=== PATIENT | female | born 1950 | race Caucasian/White ===

== ENCOUNTER 2023-09-13 16:33 | Emergency (ER) | payer OTHER ==
--- OUTSIDE RECORDS SUMMARY | 2023-09-13 16:38 | XMS REPORT | Continuity of Care Document ---
:1950 Author Organization [facility] t Address [address] [place] [address] Care Team Providers Name Role Phone WESLEY CORTEZ Primary Care Physician Unavailable Marcelo Attending Clinician Unavailable Vicente DAVIS, Sarthak Weinbreg Attending Clinician Only, Ang Db Test Attending Clinician Unavailable Asha Hester Attending Clinician ASHA BENITEZ Attending Clinician Unavailable Doctor Unassigned, [place] Attending Clinician Unavailable Nelia Jimenez Attending Clinician NELIA DUGGAN Attending Clinician Unavailable MINESH FERNANDES Attending Clinician Unavailable Alfa BAZAN, Kallie Coles Attending Clinician Unavailable LUIS QIU Attending Clinician Unavailable Marcelo Admitting Clinician Unavailable Payers Payer Name Policy Type Policy Number Effective Date Expiration Date [facility] [id number] (MEDICARE REPLACEMENT/ADVANTA GE - PPO) [employer] MEDICARE ADV [id number] 2018 00:00:00 Problems Condition Condition Condition Status Onset Resolution Last Treating Co mments Source Name Details Category Date Date Treatment Clinician Date Paroxysmal Paroxysmal Problem Active [facility] atrial Atrial 9-20 Family fibrillati Fibrillati 00:00: Pr actic on on e Atrial Atrial Problem Active [facility] fibrillati Fibrillati 03 Fa landy on on 00:00: Practic 00 e Bone Bone Problem Active [place] density Density 5-25 Family finding Finding 00:00: Practic 00 e Osteoarthr Osteoarthr Disease Active M ethodi itis of itis of [address] right knee right knee 00:00: Ho spita 00 l Arthropath Arthropath Problem Active V illage y y 2- Family 00:00: Practic 00 e Osteoporos Osteoporos Problem Active V illage is is 2-22 Family 00:00: Practic 00 e Right knee Right knee Disease Active U nivers pain pain 06-26 ity of 00:00: [address] Generalize Generalize Problem Active 2014-10 V illage d anxiety d Anxiety 12-03 Fami ly disorder Disorder 00:00: Practi c 00 e Allergies, Adverse Reactions, Alerts Allergy Allergy Status Severity Reaction(s) Onset Inactive Treating Comm ents Source Name Type Date Date Clinician Hydrocod Propensi Active Other (See 2018-10 Nausea Me thodi one ty to Comments) 016 st adverse 00:00: Hospita reaction 00 l s to drug Hydrocod Allergy Active Moderate Diarrhea Dominick fabián one to 04-21 Family substanc 00:00: Practic e 00 e HYDROCOD DRUG Active Other-Cmnt Univ ers ONE INGREDI 04-21 ity of 00:00: [address] OXYCODON DRUG Active N/V Univers E HCL INGREDI 04-21 ity of 00:00: [address] Hydrocod Drug Active Other - See Nausea Uni vers one Allergy comments 04-21 ity of 00:00: [address] Oxycodon Drug Active Nausea Univers e Hcl Allergy and/or 04-21 ity of Vomiting 00:00: [address] NO KNOWN Allergy Active [facility] NO KNOWN Drug Active Univers ALLERGIE Class ity of S [facility] Family History Family Member Diagnosis Comments Start Date Stop Date Source Maternal grandmother Stroke [facility] Natural mother Heart attack [facility] Natural mother Heart disease [facility] Paternal grandfather Cancer [facility] Paternal grandfather Prostate cancer [facility] Natural father Diabetes [facility] Social History Social Habit Start Date Stop Date Quantity Comments Source Sexual orientation 2022-12-26 Heterosexual MALIA Cooley 20:29:06 (finding) [facility] Gender identity 2021-06-03 Identifies as Method ist 17:27:43 female gender Hospital (finding) Exposure to Not sure University of SARS-CoV-2 (event) [facility] History of Social 2021-06-19 2021-06-[address] function 00:00:00 00:00:00 Hospital Alcohol Comment 2019-08-10 2019-08-10 Occasional wine Meth odist 00:00:00 00:00:00 Hospital Tobacco use and 2016-06-26 2016-06-26 Never used Universit y of exposure 00:00:00 00:00:00 [facility] Alcohol intake 2015-07-12 2015-07-12 Current drinker of [facility] 00:00:00 00:00:00 alcohol (finding) [facility] Sex Ass[birth year] At [birth year] F MALIA Pools 00:00:00 00:00:00 [facility] Smoking Status Start Date Stop Date Source Never Smoker [facility] Medications Ordered Filled Start Stop Current Ordering Indication Dosage Frequency Signature Comments Components Source Medication Medication Date Date Medication? Clinician (SIG) Name Name amitriptyli amitriptyli No amitriptyl [facility] ne 10 mg ne 10 mg 9-20 ine 10 mg Fa landy tablet tablet 00:00: tablet Practic amitriptyli amitriptyli 00 amitriptyl e ne 10 mg ne 10 mg ine 10 mg tablet 2 tablet 2 tablet 2 Tablet(s) Tablet(s) Tablet(s) by mouth by mouth by mouth take daily take daily take daily multivitami 2020-10 Yes 1{tbl} Take 1 Me thodi n 2-[address] (THERAGRAN) 13:57: mouth. Hosp ambrocio tablet 21 l triamcinolo 2020-10 Yes Q.5D Apply Metho di ne 2-[address] (KENALOG) 13:57: 2 (two) Hospi ta 0.1 % cream 21 times a l day. multivitami 2020-10 Yes 1{tbl} Take 1 Me thodi n 2-[address] (THERAGRAN) 13:57: mouth. Hosp ambrocio tablet 21 l triamcinolo 2020-10 Yes Q.5D Apply Metho di ne 2-[address] (KENALOG) 13:57: 2 (two) Hospi ta 0.1 % cream 21 times a l day. ibandronate 2020-10 Yes ibandronat Methodi (BONIVA) 2-[address] 150 mg 13:56: tablet Hospita tablet 48 TAKE 1 l TABLET ONCE MONTHLY ibandronate 2020-10 Yes ibandronat Methodi (BONIVA) 2-[address] 150 mg 13:56: tablet Hospita tablet 48 TAKE 1 l TABLET ONCE MONTHLY amitriptyli 2020-10 Yes 10mg Take 10 mg Methodi ne (ELAVIL) 2-[address] 10 MG 13:56: Hospita tablet 26 l buPROPion 2020-10 Yes 150mg Take 150 Met hodi SR 2-[address] (WELLBUTRIN 13:56: mouth. Hosp ambrocio SR) 150 MG 26 l 12 hr tablet amitriptyli 2020-10 Yes 10mg Take 10 mg Methodi ne (ELAVIL) 2-[address] 10 MG 13:56: Hospita tablet 26 l buPROPion 2020-10 Yes 150mg Take 150 Met hodi SR 2-[address] (WELLBUTRIN 13:56: mouth. Hosp ambrocio SR) 150 MG 26 l 12 hr tablet buPROPion 2020-10 Yes 150mg Take 150 Uni vers SR 0-09 mg by ity of (WELLBUTRIN 10:54: mouth 2 Chuck as SR) 150 mg 42 (two) Medical SR tablet times Branch daily. amitriptyli 2020-10 Yes 10mg Take 10 mg Univers ne (ELAVIL) 0-09 by mouth ity of 10 mg 10:54: at [place] tablet 42 bedtime. Medical Branch buPROPion 2020-10 Yes 150mg Take 150 Uni vers SR 0-09 mg by ity of (WELLBUTRIN 10:54: mouth 2 [place] as SR) 150 mg 42 (two) Medical SR tablet times Branch daily. amitriptyli 2020-10 Yes 10mg Take 10 mg Univers ne (ELAVIL) 0-09 by mouth ity of 10 mg 10:54: at [place] tablet 42 bedtime. Medical Branch buPROPion 2020-10 Yes 150mg Take 150 Uni vers SR 0-09 mg by ity of (WELLBUTRIN 10:54: mouth 2 [place] as SR) 150 mg 42 (two) Medical SR tablet times Branch daily. amitriptyli 2020-10 Yes 10mg Take 10 mg Univers ne (ELAVIL) 0-09 by mouth ity of 10 mg 10:54: at [place] tablet 42 bedtime. Medical Branch buPROPion 2020-10 Yes 150mg Take 150 Uni vers SR 0-09 mg by ity of (WELLBUTRIN 10:54: mouth 2 [place] as SR) 150 mg 42 (two) Medical SR tablet times Branch daily. amitriptyli 2020-10 Yes 10mg Take 10 mg Univers ne (ELAVIL) 0-09 by mouth ity of 10 mg 10:54: at [place] tablet 42 bedtime. Medical Branch amiodarone 2020-10 Yes 400mg Take 400 Un vira 400 mg 0-06 mg by ity of tablet 00:00: mouth 2 [place] 00 (two) Medical times Branch daily. amiodarone 2020-10 Yes 400mg Take 400 Un vira 400 mg 0-06 mg by ity of tablet 00:00: mouth 2 [place] 00 (two) Medical times Branch daily. amiodarone 2020-10 Yes 400mg Take 400 Un vira 400 mg 0-06 mg by ity of tablet 00:00: mouth 2 [place] 00 (two) Medical times Branch daily. amiodarone 2020-10 Yes 400mg Take 400 Un vira 400 mg 0-06 mg by ity of tablet 00:00: mouth 2 [place] 00 (two) Medical times Branch daily. XARELTO 20 Yes 20mg Take 20 mg U nivers mg tablet 9-27 by mouth ity of 00:00: every [place] 00 morning. Medical Branch XARELTO 20 Yes 20mg Take 20 mg U nivers mg tablet 9-27 by mouth ity of 00:00: every [place] 00 morning. Medical Branch XARELTO 20 Yes 20mg Take 20 mg U nivers mg tablet 9-27 by mouth ity of 00:00: every [place] 00 morning. Medical Branch XARELTO 20 Yes 20mg Take 20 mg U nivers mg tablet 9-27 by mouth ity of 00:00: every [place] 00 morning. Medical Branch Xarelto 20 2020-0 Yes Methodi mg tablet 07-22 00:00: Hospita 00 l Xarelto 20 2020-0 Yes Methodi mg tablet 07-22 00:00: Hospita 00 l metoprolol 2020-0 Yes 50mg QD Take 50 mg M ethodi succinate 06-[address] XL 00:00: daily. Hospita (TOPROL-XL) 00 l 50 mg 24 hr tablet metoprolol 0 Yes 50mg QD Take 50 mg M ethodi succinate 06-[address] XL 00:00: daily. Hospita (TOPROL-XL) 00 l 50 mg 24 hr tablet triamcinolo 0 Yes Univer s ne 8- ity of acetonide 00:00: [place] 0.1 % cream 00 Medical Branch triamcinolo 0 Yes Univer s ne 8- ity of acetonide 00:00: [place] 0.1 % cream 00 Medical Branch triamcinolo 0 Yes Univer s ne 8-09 ity of acetonide 00:00: [place] 0.1 % cream 00 Medical Branch triamcinolo 0 Yes Univer s ne 8-09 ity of acetonide 00:00: [place] 0.1 % cream 00 Medical Branch cycloSPORIN 2019-10 Yes Restasis Un vira E 0-23 0.05 % eye ity of (RESTASIS) 00:00: drops in a [place] 0.05 % 00 [place] Medical drops e INT 1 Branch GTT IN OU BID cycloSPORIN 2019-10 Yes Restasis Un vira E 0-23 0.05 % eye ity of (RESTASIS) 00:00: drops in a [place] 0.05 % 00 [place] Medical drops e INT 1 Branch GTT IN OU BID cycloSPORIN 2019-10 Yes Restasis Un vira E 0-23 0.05 % eye ity of (RESTASIS) 00:00: drops in a [place] 0.05 % 00 [place] Medical drops e INT 1 Branch GTT IN OU BID cycloSPORIN 2019-10 Yes Restasis Un vira E 0-23 0.05 % eye ity of (RESTASIS) 00:00: drops in a [place] 0.05 % 00 [place] Medical drops e INT 1 Branch GTT IN OU BID cycloSPORIN 2019-10 Yes Restasis Me thodi E 0-23 0.05 % eye st (Restasis) 00:00: drops in a H ospita 0.05 % 00 drop[place] l ophthalmic e INT 1 emulsion GTT IN OU BID cycloSPORIN 2019-10 Yes Restasis Me thodi E 0-23 0.05 % eye st (Restasis) 00:00: drops in a H ospita 0.05 % 00 dropperett l ophthalmic e INT 1 emulsion GTT IN OU BID MULTIVITAMI Yes Take by Uni vers NS WITH 06-26 mouth. ity of FLUORIDE 15:40: [place] (MULTI-ESTEBAN 39 Medical MIN ORAL) Branch SODIUM Yes Use in Univers CHLORIDE 06-26 each ity of (SALINE 15:40: nostril. [place] NASAL 39 Medical NASAL) Branch MULTIVITAMI Yes Take by Uni vers NS WITH 06-26 mouth. ity of FLUORIDE 15:40: [place] (MULTI-ESTEBAN 39 Medical MIN ORAL) Branch SODIUM Yes Use in Univers CHLORIDE 06-26 each ity of (SALINE 15:40: nostril. [place] NASAL 39 Medical NASAL) Branch MULTIVITAMI Yes Take by Uni vers NS WITH 06-26 mouth. ity of FLUORIDE 15:40: [place] (MULTI-ESTEBAN 39 Medical MIN ORAL) Branch SODIUM Yes Use in Univers CHLORIDE 06-26 each ity of (SALINE 15:40: nostril. [place] NASAL 39 Medical NASAL) Branch buPROPion Yes 150mg Take 150 Uni vers SR 06-26 mg by ity of (WELLBUTRIN 15:40: mouth 2 [place] as SR) 150 mg 38 (two) Medical SR tablet times Branch daily. amitriptyli Yes 10mg Take 10 mg Univers ne (ELAVIL) 06-26 by mouth ity of 10 mg 15:40: at [place] tablet 38 bedtime. Medical Branch CALCIUM Yes Take by Univers CITRATE 06-26 mouth. ity of (CITRACAL 15:40: [place] ORAL) 38 Medical Branch GLUCOSAMINE Yes Take by Uni vers /D3/EVELIN 06-26 mouth. ity of [place] SORIN 15:40: [place] (GLUCOSAMIN 38 Medical E DAILY Branch COMPLEX ORAL) buPROPion 2016-0 Yes 150mg Take 150 Uni vers SR 9- mg by ity of (WELLBUTRIN 15:40: mouth 2 [place] as SR) 150 mg 38 (two) Medical SR tablet times Branch daily. amitriptyli Yes 10mg Take 10 mg Univers ne (ELAVIL) 06-26 by mouth ity of 10 mg 15:40: at [place] tablet 38 bedtime. Medical Branch CALCIUM Yes Take by Univers CITRATE 06-26 mouth. ity of (CITRACAL 15:40: [place] ORAL) 38 Medical Branch GLUCOSAMINE Yes Take by Uni vers /D3/EVELIN 06-26 mouth. ity of [place] SORIN 15:40: [place] (GLUCOSAMIN 38 Medical E DAILY Branch COMPLEX ORAL) buPROPion Yes 150mg Take 150 Uni vers SR 9- mg by ity of (WELLBUTRIN 15:40: mouth 2 [place] as SR) 150 mg 38 (two) Medical SR tablet times Branch daily. amitriptyli Yes 10mg Take 10 mg Univers ne (ELAVIL) 06-26 by mouth ity of 10 mg 15:40: at [place] tablet 38 bedtime. Medical Branch CALCIUM Yes Take by Univers CITRATE 06-26 mouth. ity of (CITRACAL 15:40: [place] ORAL) 38 Medical Branch GLUCOSAMINE Yes Take by Uni vers /D3/EVELIN 06-26 mouth. ity of [place] SORIN 15:40: [place] (GLUCOSAMIN 38 Medical E DAILY Branch COMPLEX ORAL) MULTIVITAMI Yes Take by Uni vers NS WITH 06-26 mouth. ity of FLUORIDE 10:40: [place] (MULTI-ESTEBAN 39 Medical MIN ORAL) Branch SODIUM Yes Use in Univers CHLORIDE 06-26 each ity of (SALINE 10:40: nostril. [place] NASAL 39 Medical NASAL) Branch MULTIVITAMI Yes Take by Uni vers NS WITH 06-26 mouth. ity of FLUORIDE 10:40: [place] (MULTI-ESTEBAN 39 Medical MIN ORAL) Branch SODIUM Yes Use in Univers CHLORIDE 06-26 each ity of (SALINE 10:40: nostril. [place] NASAL 39 Medical NASAL) Branch MULTIVITAMI Yes Take by Uni vers NS WITH 06-26 mouth. ity of FLUORIDE 10:40: [place] (MULTI-ESTEBAN 39 Medical MIN ORAL) Branch SODIUM Yes Use in Univers CHLORIDE 06-26 each ity of (SALINE 10:40: nostril. [place] NASAL 39 Medical NASAL) Branch MULTIVITAMI Yes Take by Uni vers NS WITH 06-26 mouth. ity of FLUORIDE 10:40: [place] (MULTI-ESTEBAN 39 Medical MIN ORAL) Branch SODIUM Yes Use in Univers CHLORIDE 06-26 each ity of (SALINE 10:40: nostril. [place] NASAL 39 Medical NASAL) Branch CALCIUM Yes Take by Univers CITRATE 06-26 mouth. ity of (CITRACAL 10:40: [place] ORAL) 38 Medical Branch GLUCOSAMINE Yes Take by Uni vers /D3/EVELIN 06-26 mouth. ity of [place] SORIN 10:40: [place] (GLUCOSAMIN 38 Medical E DAILY Branch COMPLEX ORAL) CALCIUM Yes Take by Univers CITRATE 06-26 mouth. ity of (CITRACAL 10:40: [place] ORAL) 38 Medical Branch GLUCOSAMINE Yes Take by Uni vers /D3/EVELIN 06-26 mouth. ity of [place] SORIN 10:40: [place] (GLUCOSAMIN 38 Medical E DAILY Branch COMPLEX ORAL) CALCIUM Yes Take by Univers CITRATE 06-26 mouth. ity of (CITRACAL 10:40: [place] ORAL) 38 Medical Branch GLUCOSAMINE Yes Take by Uni vers /D3/EVELIN 06-26 mouth. ity of [place] SORIN 10:40: [place] (GLUCOSAMIN 38 Medical E DAILY Branch COMPLEX ORAL) CALCIUM Yes Take by Univers CITRATE 06-26 mouth. ity of (CITRACAL 10:40: [place] ORAL) 38 Medical Branch GLUCOSAMINE Yes Take by Uni vers /D3/EVELIN 01 mouth. ity of [place] SORIN 10:40: [place] (GLUCOSAMIN 38 Medical E DAILY Branch COMPLEX ORAL) methylPREDN 2015-0 Yes 84mg Take 21 Uni vers ISolone 9-01 tablets by ity of (MEDROL, 00:00: mouth [place] YESSI,) 4 mg 00 SEE-INSTRU Med ical tablets CTIONS. Branch follow package directions methylPREDN 2015-0 Yes 84mg Take 21 Uni vers ISolone 9-01 tablets by ity of (MEDROL, 00:00: mouth [place] YESSI,) 4 mg 00 SEE-INSTRU Med ical tablets CTIONS. Branch follow package directions methylPREDN 2016-0 Yes 84mg Take 21 Uni vers ISolone 9-01 tablets by ity of (MEDROL, 00:00: mouth [place] YESSI,) 4 mg 00 SEE-INSTRU Med ical tablets CTIONS. Branch follow package directions methylPREDN 2015-0 Yes 84mg Take 21 Uni vers ISolone 9-01 tablets by ity of (MEDROL, 00:00: mouth [place] YESSI,) 4 mg 00 SEE-INSTRU Med ical tablets CTIONS. Branch follow package directions methylPREDN 2015-0 Yes 84mg Take 21 Uni vers ISolone 9-01 tablets by ity of (MEDROL, 00:00: mouth [place] YESSI,) 4 mg 00 SEE-INSTRU Med ical tablets CTIONS. Branch follow package directions methylPREDN 2015-0 Yes 84mg Take 21 Uni vers ISolone 9-01 tablets by ity of (MEDROL, 00:00: mouth [place] YESSI,) 4 mg 00 SEE-INSTRU Med ical tablets CTIONS. Branch follow package directions methylPREDN 2015-0 Yes 84mg Take 21 Uni vers ISolone 9-01 tablets by ity of (MEDROL, 00:00: mouth [place] YESSI,) 4 mg 00 SEE-INSTRU Med ical tablets CTIONS. Branch follow package directions ibandronate 0 Yes TK 1 T PO U nivers (BONIVA) 8 ONCE A ity of 150 mg 00:00: MONTH [place] tablet 00 [facility] ibandronate 0 Yes TK 1 T PO U nivers (BONIVA) 8 ONCE A ity of 150 mg 00:00: MONTH [place] tablet Medical [place] ibandronate 0 Yes TK 1 T PO U nivers (BONIVA) 8- ONCE A ity of 150 mg 00:00: MONTH [place] tablet 00 Medical [place] ibandronate 0 Yes TK 1 T PO U nivers (BONIVA) 8- ONCE A ity of 150 mg 00:00: MONTH [place] tablet Medical [place] ibandronate 0 Yes TK 1 T PO U nivers (BONIVA) 8 ONCE A ity of 150 mg 00:00: MONTH [place] tablet Medical [place] ibandronate 0 Yes TK 1 T PO U nivers (BONIVA) 8 ONCE A ity of 150 mg 00:00: MONTH [place] tablet 00 Medical Branch ibandronate Yes TK 1 T PO U nivers (BONIVA) 8-02 ONCE A ity of 150 mg 00:00: MONTH [place] tablet 00 Medical Branch buPROPion Yes 150mg Q.5D Take [address] (WELLBUTRIN 9-17 mg by [facility] SR) 150 MG 14:52: mouth 2 Medi petra 12 hr 14 (two) Center tablet times daily. amitriptyli Yes 10mg QD Take [address] ne (ELAVIL) 9-17 by mouth Luke s 10 MG 14:52: nightly. Medical tablet 14 Center conjugated Yes .5g Q.5W Place 0.[address] estrogens 9-17 g [facility] (PREMARIN) 14:52: vaginally Me dical 0.625 14 twice a Center mg/gram week. vaginal cream calcium Yes 1{tbl} QD Take [address] citrate 9-17 tablet by [facility] (CALCITRATE 14:52: mouth Medic al ) 200 mg 14 daily. Center (950 mg) tablet glucosamine Yes 1{tbl} [id number] Take [address] -chondroiti 9-17 [id number] tablet by [facility] n 500-400 14:52: 3D mouth 3 Medic al mg tablet 14 (three) Center times daily. multivitami Yes 1{tbl} QD Take [address] n 9-17 tablet by [facility] (MULTIVITAM 14:52: mouth Medic al IN) per 14 daily. Center tablet sodium Yes 1{spray [address] [facility] chloride 9-17 } Nasal [facility] 0.65% 14:52: route as Medical (OCEAN) 14 needed for Center 0.65 % Congestion nasal spray . calcium Yes 1{tbl} QD Take [address] citrate 9-17 tablet by [facility] (CALCITRATE 14:52: mouth Medic al ) 200 mg 14 daily. Center (950 mg) tablet glucosamine Yes 1{tbl} [id number] Take [address] -chondroiti 9-17 [id number] tablet by [facility] n 500-400 14:52: 3D mouth 3 Medic al mg tablet 14 (three) Center times daily. multivitami 2015-0 Yes 1{tbl} QD Take [address] n 9-17 tablet by [facility] (MULTIVITAM 14:52: mouth Medic al IN) per 14 daily. Center tablet sodium Yes 1{spray [address] [facility] chloride 9-17 } Nasal [facility] 0.65% 14:52: route as Medical (OCEAN) 14 needed for Center 0.65 % Congestion nasal spray . buPROPion Yes 150mg Q.5D Take [address] (WELLBUTRIN 9-17 mg by [facility] SR) 150 MG 14:52: mouth 2 Medi petra 12 hr 14 (two) Center tablet times daily. amitriptyli Yes 10mg QD Take [address] ne (ELAVIL) 9-17 by mouth Luke s 10 MG 14:52: nightly. Medical tablet 14 Center conjugated Yes .5g Q.5W Place 0.[address] estrogens 9-17 g [facility] (PREMARIN) 14:52: vaginally Me dical 0.625 14 twice a Center mg/gram week. vaginal cream Saline Saline 2011-10 [facility] Nasal Mist Nasal Mist 2-10 Nasal Mist Family 0.65 % 0.65 % 00:00: 0.65 % Practic spray spray 00 spray e aerosol aerosol aerosol Saline Saline Saline Nasal Mist Nasal Mist Nasal Mist 0.65 % 0.65 % 0.65 % [place] Aerosol; 2 Aerosol; 2 Aerosol; 2 [place]; [place]; [place]; Nasal; take Nasal; take Nasal; daily daily take daily multivitami multivitami 2010-10 No [facility] tablet n tablet 1-14 in tablet [facility] multivitami multivitami 00:00: multivitam Practic n Tab; 1 n Tab; 1 00 in Tab; 1 e Tablet(s); Tablet(s); Tablet(s); PO; daily; PO; daily; PO; daily; UOM: Tablet UOM: Tablet UOM: Tablet [facility]ivitami [facility]ami 2010-10 [facility] n tablet 1-14 in tablet [facility] multivitami multivitami 00:00: multivitam Practic n Tab; 1 n Tab; 1 00 in Tab; 1 e Tablet(s); Tablet(s); Tablet(s); PO; daily; PO; daily; PO; daily; UOM: Tablet UOM: Tablet UOM: Tablet multivitami multivitami 2010-10 No multivitam [facility] n tablet n tablet 1-14 in tablet [facility] multivitami multivitami 00:00: multivitam Practic n Tab; 1 n Tab; 1 00 in Tab; 1 e Tablet(s); Tablet(s); Tablet(s); PO; daily; PO; daily; PO; daily; UOM: Tablet UOM: Tablet UOM: Tablet multivitami [facility]ami 2010-10 [facility] n tablet 1-14 in tablet [facility] multivitami multivitami 00:00: multivitam Practic n Tab; 1 n Tab; 1 00 in Tab; 1 e Tablet(s); Tablet(s); Tablet(s); PO; daily; PO; daily; PO; daily; UOM: Tablet UOM: Tablet UOM: Tablet [facility] No 1{spray [facility] 0.65 % 0.65 % } 0.65 % Family nasal spray nasal spray nasal Practic aerosol 1 aerosol 1 spray e {spray} by {spray} by aerosol 1 nasal nasal {spray} by route. route. nasal route. amitriptyli amitriptyli No 10mg amitriptyl [facility] ne 10 mg ne 10 mg ine 10 mg [facility] tablet 10 tablet 10 tablet 10 Practic mg by oral mg by oral mg by oral e route. route. route. bupropion bupropion No 150mg BID bupropion [facility] HCl SR 150 HCl SR 150 HCl SR 150 Family mg mg mg Practic tablet,12 tablet,12 tablet,12 e hr hr hr sustained-r sustained-r sustained- elease 150 elease 150 release mg twice a mg twice a 150 mg day by oral day by oral twice a route. route. day by oral route. ibandronate ibandronate No ibandronat [facility] 150 mg 150 mg e 150 mg Family tablet TAKE tablet TAKE tablet Practic 1 TABLET 1 TABLET TAKE 1 e ONCE ONCE TABLET MONTHLY MONTHLY ONCE MONTHLY metoprolol metoprolol No metoprolol [facility] succinate succinate succinate Family ER 50 mg ER 50 mg ER 50 mg Pra ctic tablet,exte tablet,exte tablet,ext e nded nded ended release 24 release 24 release 24 hr TAKE 1/2 hr TAKE 1/2 hr TAKE TABLET BY TABLET BY 1/2 TABLET MOUTH DAILY MOUTH DAILY BY MOUTH DAILY Premarin Premarin No .5g Premarin Dominick fabián 0.625 0.625 0.625 Family mg/gram mg/gram mg/gram Practi c vaginal vaginal vaginal e cream 0.5 g cream 0.5 g cream 0.5 by vaginal by vaginal g by route. route. vaginal route. Restasis Restasis No Restasis Dominick fabián 0.05 % eye 0.05 % eye 0.05 % eye Family drops in a drops in a drops in a Practic dropperette dropperette dropperett e INT 1 GTT INT 1 GTT e INT 1 IN OU BID IN OU BID GTT IN OU BID triamcinolo triamcinolo No triamcinol [facility] ne ne one Family acetonide acetonide acetonide Practic 0.1 % 0.1 % 0.1 % e topical topical topical cream cream cream Xarelto 20 Xarelto 20 No Xarelto 20 [place] mg tablet mg tablet mg tablet Family TAKE 1 TAKE 1 TAKE 1 Practic TABLET BY TABLET BY TABLET BY e MOUTH DAILY MOUTH DAILY MOUTH DAILY [facility] No 1{spray [facility] 0.65 % 0.65 % } 0.65 % Family nasal spray nasal spray nasal Practic aerosol 1 aerosol 1 spray e {spray} by {spray} by aerosol 1 nasal nasal {spray} by route. route. nasal route. amitriptyli amitriptyli No 10mg amitriptyl [facility] ne 10 mg ne 10 mg ine 10 mg Fa landy tablet 10 tablet 10 tablet 10 Practic mg by oral mg by oral mg by oral e route. route. route. bupropion bupropion No 150mg BID bupropion [facility] HCl SR 150 HCl SR 150 HCl SR 150 Family mg mg mg Practic tablet,12 tablet,12 tablet,12 e hr hr hr sustained-r sustained-r sustained- elease 150 elease 150 release mg twice a mg twice a 150 mg day by oral day by oral twice a route. route. day by oral route. ibandronate ibandronate No ibandronat [facility] 150 mg 150 mg e 150 mg Family tablet TAKE tablet TAKE tablet Practic 1 TABLET 1 TABLET TAKE 1 e ONCE ONCE TABLET MONTHLY MONTHLY ONCE MONTHLY metoprolol metoprolol No metoprolol [place] succinate succinate succinate Family ER 50 mg ER 50 mg ER 50 mg Pra ctic tablet,exte tablet,exte tablet,ext e nded nded ended release 24 release 24 release 24 hr TAKE 1/2 hr TAKE 1/2 hr TAKE TABLET BY TABLET BY 1/2 TABLET MOUTH DAILY MOUTH DAILY BY MOUTH DAILY Premarin Premarin No .5g Premarin Dominick fabián 0.625 0.625 0.625 Family mg/gram mg/gram mg/gram Practi c vaginal vaginal vaginal e cream 0.5 g cream 0.5 g cream 0.5 by vaginal by vaginal g by route. route. vaginal route. Restasis Restasis No Restasis Dominick fabián 0.05 % eye 0.05 % eye 0.05 % eye Family drops in a drops in a drops in a Practic dropperette dropperette dropperett e INT 1 GTT INT 1 GTT e INT 1 IN OU BID IN OU BID GTT IN OU BID triamcinolo triamcinolo No triamcinol [place] ne ne one Family acetonide acetonide acetonide Practic 0.1 % 0.1 % 0.1 % e topical topical topical cream cream cream Xarelto 20 Xarelto 20 No Xarelto 20 Village mg tablet mg tablet mg tablet Family TAKE 1 TAKE 1 TAKE 1 Practic TABLET BY TABLET BY TABLET BY e MOUTH DAILY MOUTH DAILY MOUTH DAILY bupropion bupropion No bupropion [facility] HCl SR 150 HCl SR 150 HCl SR 150 Family mg mg mg Practic tablet,12 tablet,12 tablet,12 e hr hr hr sustained-r sustained-r sustained- elease TAKE elease TAKE release 1 TABLET 1 TABLET TAKE 1 DAILY DAILY TABLET DAILY ibandronate ibandronate No ibandronat [place] 150 mg 150 mg e 150 mg Family tablet TAKE tablet TAKE tablet Practic 1 TABLET 1 TABLET TAKE 1 e ONCE ONCE TABLET MONTHLY MONTHLY ONCE MONTHLY metoprolol metoprolol No 1 Q1D metoprolol [facility] succinate succinate succinate Family ER 50 mg ER 50 mg ER 50 mg Pra ctic tablet,exte tablet,exte tablet,ext e nded nded ended release 24 release 24 release 24 hr Take 1 hr Take 1 hr Take 1 tablet tablet tablet every day every day every day by oral by oral by oral route. route. route. Restasis Restasis No Restasis Dominick fabián 0.05 % eye 0.05 % eye 0.05 % eye Family drops in a drops in a drops in a Practic dropperette dropperette dropperett e INT 1 GTT INT 1 GTT e INT 1 IN OU BID IN OU BID GTT IN OU BID triamcinolo triamcinolo No triamcinol [place] ne ne one Family acetonide acetonide acetonide Practic 0.1 % 0.1 % 0.1 % e topical topical topical cream cream cream Xarelto 20 Xarelto 20 No 1 Q1D Xarelto 20 [facility] mg tablet mg tablet mg tablet Family Take 1 Take 1 Take 1 Practic tablet tablet tablet e every day every day every day by oral by oral by oral route. route. route. bupropion bupropion No bupropion [facility] HCl SR 150 HCl SR 150 HCl SR 150 Family mg mg mg Practic tablet,12 tablet,12 tablet,12 e hr hr hr sustained-r sustained-r sustained- elease TAKE elease TAKE release 1 TABLET 1 TABLET TAKE 1 DAILY DAILY TABLET DAILY chlorhexidi chlorhexidi chlorhexid [facility] ne ine Family gluconate gluconate gluconate Practic 0.12 % 0.12 % 0.12 % e mouthwash mouthwash mouthwash SWAB SWAB SWAB IMPLANT IMPLANT IMPLANT WITH WITH WITH SOLUTION SOLUTION SOLUTION TWICE DAILY TWICE DAILY TWICE AFTER AFTER DAILY BRUSHING BRUSHING AFTER BRUSHING ibandronate ibandronate No ibandronat [facility] 150 mg 150 mg e 150 mg Family tablet TAKE tablet TAKE tablet Practic 1 TABLET 1 TABLET TAKE 1 e ONCE ONCE TABLET MONTHLY MONTHLY ONCE MONTHLY metoprolol metoprolol metoprolol [facility] succinate succinate succinate Family ER 50 mg ER 50 mg ER 50 mg Pra ctic tablet,exte tablet,exte tablet,ext e nded nded ended release 24 release 24 release 24 hr TAKE 1/2 hr TAKE 1/2 hr TAKE TABLET BY TABLET BY 1/2 TABLET MOUTH DAILY MOUTH DAILY BY MOUTH DAILY mupirocin 2 mupirocin 2 No mupirocin Village % topical % topical 2 % Famil y ointment ointment topical Prac tic APPLY APPLY ointment e SPARINGLY SPARINGLY APPLY TOPICALLY TOPICALLY SPARINGLY TO THE TO THE TOPICALLY AFFECTED AFFECTED TO THE AREA THREE AREA THREE AFFECTED TIMES DAILY TIMES DAILY AREA THREE TIMES DAILY Restasis Restasis No Restasis Dominick fabián 0.05 % eye 0.05 % eye 0.05 % eye Family drops in a drops in a drops in a Practic dropperette dropperette dropperett e INT 1 GTT INT 1 GTT e INT 1 IN OU BID IN OU BID GTT IN OU BID triamcinolo triamcinolo No triamcinol [place] ne ne one Family acetonide acetonide acetonide Practic 0.1 % 0.1 % 0.1 % e topical topical topical cream cream cream Xarelto 20 Xarelto 20 No Xarelto 20 [facility] mg tablet mg tablet mg tablet Family TAKE 1 TAKE 1 TAKE 1 Practic TABLET BY TABLET BY TABLET BY e MOUTH DAILY MOUTH DAILY MOUTH DAILY Immunizations Ordered Immunization Filled Immunization Date Status Commen ts Source Name Name SARS-COV-2 SARS-COV-2 2020-12-24 Completed [facility] (COVID-19) vaccine, (COVID-19) vaccine, 00:00:00 Family UNSPECIFIED UNSPECIFIED Practice COVID-19 COVID-19 2020-12-24 Completed [facility] (SARS-COV-2) (SARS-COV-2) 00:00:00 Family vaccine, unspecified vaccine, unspecified Practice SARS-COV-2 SARS-COV-2 2020-11-26 Completed [facility] (COVID-19) vaccine, (COVID-19) vaccine, 00:00:00 Family UNSPECIFIED UNSPECIFIED Practice COVID-19 COVID-19 2020-11-26 Completed [facility] (SARS-COV-2) (SARS-COV-2) 00:00:00 Family vaccine, unspecified vaccine, unspecified Practice COVID-19 vaccine, COVID-19 vaccine, 2019-12-27 Completed [facility] vector-nr, rS-Ad26, vector-nr, rS-Ad26, 00:00:00 Family PF, 0.5 mL (Streamline) PF, 0.5 mL (Slick) Practice zoster recombinant zoster recombinant 2019-04-25 Completed [facility] 00:00:00 Family Practice zoster recombinant zoster recombinant 2019-04-25 [facility] 00:00:00 Family Practice influenza, high dose influenza, high dose 2016-12-17 Completed [facility] seasonal seasonal 00:00:00 Family Practice influenza, high dose influenza, high dose 2016-12-17 Completed [facility] seasonal seasonal 00:00:00 Family Practice pneumococcal pneumococcal 2015-10-02 Completed [facility] polysaccharide PPV23 polysaccharide PPV23 00:00:00 Family Practice pneumococcal pneumococcal 2015-10-02 Completed [facility] polysaccharide PPV23 polysaccharide PPV23 00:00:00 Family Practice influenza, high dose influenza, high dose 2015-07-26 Completed [facility] seasonal seasonal 00:00:00 Family Practice influenza, high dose influenza, high dose 2015-07-26 Completed [facility] seasonal seasonal 00:00:00 Family Practice zoster live zoster live 2014-03-13 Completed [facility] 00:00:00 Family Practice Tdap Tdap 2014-03-13 Completed [facility] 00:00:00 Family Practice zoster live zoster live 2014-03-13 Completed [facility] 00:00:00 Family Practice Tdap Tdap 2014-03-13 Completed [facility] 00:00:00 Family Practice Pneumococcal Pneumococcal Unknown Completed [facility] conjugate PCV20, conjugate PCV20, Fa landy polysaccharide polysaccharide Practi ce [id number] conjugate, [id number] conjugate, adjuvant, PF adjuvant, PF influenza, influenza, Unknown Completed [facility] high-dose, high-dose, Family quadrivalent quadrivalent Practice COVID-19 COVID-19 Unknown Completed [facility] (SARS-COV-2) (SARS-COV-2) Family vaccine, unspecified vaccine, unspecified Practice COVID-19 COVID-19 Unknown Completed [facility] (SARS-COV-2) (SARS-COV-2) Family vaccine, unspecified vaccine, unspecified Practice COVID-19 vaccine, COVID-19 vaccine, Unknown Completed [facility] vector-nr, rS-Ad26, vector-nr, rS-Ad26, Family PF, 0.5 mL (Streamline) PF, 0.5 mL (Streamline) Practice zoster recombinant zoster recombinant Unknown Completed [facility] Family Practice influenza, high dose influenza, high dose Unknown Completed [facility] seasonal seasonal Family Practice pneumococcal pneumococcal Unknown Completed [facility] polysaccharide PPV23 polysaccharide PPV23 Family Practice influenza, high dose influenza, high dose Unknown Completed [facility] seasonal seasonal Family Practice zoster live zoster live Unknown Completed [facility] Family Practice Tdap Tdap Unknown Completed [facility] Family Practice Pneumococcal Pneumococcal Unknown Completed [facility] conjugate PCV20, conjugate PCV20, Fa landy polysaccharide polysaccharide Practi ce [id number] conjugate, [id number] conjugate, adjuvant, PF adjuvant, PF influenza, influenza, Unknown Completed [facility] high-dose, high-dose, Family quadrivalent quadrivalent Practice COVID-19 COVID-19 Unknown Completed [facility] (SARS-COV-2) (SARS-COV-2) Family vaccine, unspecified vaccine, unspecified Practice COVID-19 COVID-19 Unknown Completed [facility] (SARS-COV-2) (SARS-COV-2) Family vaccine, unspecified vaccine, unspecified Practice COVID-19 vaccine, COVID-19 vaccine, Unknown Completed [facility] vector-nr, rS-Ad26, vector-nr, rS-Ad26, Family PF, 0.5 mL (Slick) PF, 0.5 mL (Slick) Practice zoster recombinant zoster recombinant Unknown Completed [facility] Practice influenza, high dose influenza, high dose Unknown Completed [facility] seasonal seasonal Family Practice pneumococcal pneumococcal Unknown Completed [facility] polysaccharide PPV23 polysaccharide PPV23 Family Practice influenza, high dose influenza, high dose Unknown Completed [facility] seasonal Family Practice zoster live zoster live Unknown Completed [facility] Tdap Tdap Unknown Completed [facility] Vital Signs Vital Name Observation Time Observation Value Comments Source Body Weight 2023-07-15 00:00:00 123.8 [lb_av] [facility] Practice BP Diastolic 2023-07-15 00:00:00 82 mm[Hg] [facility] Practice Height 2023-07-15 00:00:00 69 [in_i] [facility] Practice BP Systolic 2023-07-15 00:00:00 122 mm[Hg] [facility] Practice BMI (Body Mass 2023-07-15 00:00:00 18.3 kg/m2 [facility] Index) Practice BP Diastolic 2022-07-15 00:00:00 74 mm[Hg] [facility] Practice Height 2022-07-15 00:00:00 69 [in_i] [facility] Practice BMI (Body Mass 2022-07-15 00:00:00 17.9 kg/m2 [facility] Index) Practice BP Systolic 2022-07-15 00:00:00 120 mm[Hg] [facility] Body Weight 2022-07-15 00:00:00 121.4 [lb_av] [facility] Systolic blood 2021-08-03 15:56:00 129 mm[Hg] Univer sity of pressure [facility] Diastolic blood 2021-08-03 15:56:00 77 mm[Hg] Unive rsity of [facility] Heart rate 2021-08-03 15:56:00 51 /min [facility] Body temperature 2021-08-03 15:56:00 36.44 [facility] Respiratory rate 2021-08-03 15:56:00 19 /min [facility] Body height 2021-08-03 15:56:00 175.3 cm [facility] Body weight 2021-08-03 15:56:00 60.147 kg [facility] BMI 2021-08-03 15:56:00 19.58 kg/m2 [facility] Oxygen saturation in 2021-08-03 15:56:00 99 /min [facility] Arterial blood by [facility] Pulse oximetry Branch BP Diastolic 2021-06-28 00:00:00 70 mm[Hg] [facility] Height 2021-06-28 00:00:00 69 [in_i] [facility] BMI (Body Mass 2021-06-28 00:00:00 18.3 kg/m2 Vill e Family Index) Practice BP Systolic 2021-06-28 00:00:00 110 mm[Hg] [facility] Body Weight 2021-06-28 00:00:00 123.6 [lb_av] [facility] Systolic blood 2022-12-18 17:42:00 102 mm[Hg] [facility] pressure Diastolic blood 2022-12-18 17:42:00 75 mm[Hg] [facility] pressure Heart rate 2022-12-18 17:42:00 87 /min [facility] Respiratory rate 2022-12-18 17:42:00 16 /min [facility] Oxygen saturation in 2022-12-18 17:42:00 98 /min [facility] Arterial blood by Pulse oximetry Body height 2022-12-18 17:11:00 175.3 cm [facility] Body weight 2022-12-18 17:11:00 54.432 kg [facility] BMI 2022-12-18 17:11:00 17.72 kg/m2 [facility] Procedures Procedure Date / Time Performing Clinician Source Performed DEXA, axial skeleton 2023-07-15 00:00:[address] [facility] [address] CARDIAC OVERREAD 2022-12-18 17:47:40 Sarthak Zhang [facility] CV CTA CORONARY ARTERIES W 2022-12-18 17:45:37 Sarthak Zhang [facility] CONTRAST POC CREATININE 2022-12-18 17:08:00 Sarthak Zhang [facility] ESTIMATED GFR 2022-12-18 17:08:00 Sarthak Zhang [facility] ASSIGNMENT OF BENEFITS 2021-11-20 16:22:07 Doctor Unassigned, [facility] XR FOOT 3+ VW RIGHT 2021-08-03 16:29:19 [facility] 2021-06[facility]28 00:00:00 [facility] Practice Colonoscopy [facility] Eye Surgery [facility] Practice Knee Replacement [facility] Plan of Care Planned Activity Planned Date Details Comments Source Future Scheduled Test 2023-08-19 Screening for [facility] 15:19:04 malignant neoplasm of Hospit al colon (procedure) [code = 853440513] Future Scheduled Test 2023-08-19 Screening for [facility] 15:19:04 malignant neoplasm of Hospit al colon (procedure) [code = 688500662] Future Scheduled Test 2023-08-19 Screening for [facility] 15:19:04 malignant neoplasm of Hospit al colon (procedure) [code = 586206520] Future Scheduled Test 2023-08-19 Hepatitis C screening [facility] 15:19:04 (procedure) [code = Hospital 068543782] Future Scheduled Test 2023-08-19 Screening for [facility] dist 15:19:04 malignant neoplasm of Hospit al colon (procedure) [code = 259052209] Future Scheduled Test 2023-08-19 Screening for [facility] dist 15:19:04 malignant neoplasm of Hospit al colon (procedure) [code = 147864096] Future Scheduled Test 2023-08-19 SHINGLES VACCINES (2 [facility] 15:19:04 of 3) [code = SHINGLES Hospi danish VACCINES (2 of 3)] Future Scheduled Test 2023-08-19 BREAST CANCER [facility] 15:19:04 SCREENING [code = Hospital BREAST CANCER SCREENING] Future Scheduled Test 2023-08-19 COVID-19 VACCINE (6 - [facility] 15:19:04 season) [code Hospit al = COVID-19 VACCINE ( - season)] Future Scheduled Test 2023-08-19 INFLUENZA VACCINE (#1) [facility] 15:19:04 [code = INFLUENZA Hospital VACCINE (#1)] Diagnostic Test 2023-07-15 CBC w/ auto diff [code Vi llage Family Pending 00:00:00 = CBC w/ auto diff] Practice Diagnostic Test 2023-07-15 CMP, serum or plasma Vill age Family Pending 00:00:00 [code = CMP, serum or Practi ce plasma] Diagnostic Test 2023-07-15 vitamin D, 25-hydroxy, Vi llage Family Pending 00:00:00 total, serum [code = Practic e vitamin D, 25-hydroxy, total, serum] Future Scheduled Test 2023-07-08 Screening for [facility] dist 22:10:15 malignant neoplasm of Hospit al colon (procedure) [code = 743633502] Future Scheduled Test 2023-07-08 Screening for [facility] dist 22:10:15 malignant neoplasm of Hospit al colon (procedure) [code = 954813823] Future Scheduled Test 2023-07-08 Screening for [facility] dist 22:10:15 malignant neoplasm of Hospit al colon (procedure) [code = 024954485] Future Scheduled Test 2023-07-08 Hepatitis C screening [facility] 22:10:15 (procedure) [code = [facility] 634749313] Future Scheduled Test 2023-07-08 Screening for [facility] dist 22:10:15 malignant neoplasm of Hospit al colon (procedure) [code = 431664501] Future Scheduled Test 2023-07-08 Screening for [facility]o dist 22:10:15 malignant neoplasm of Hospit al colon (procedure) [code = 702185711] Future Scheduled Test 2023-07-08 SHINGLES VACCINES (2 [facility] 22:10:15 of 3) [code = SHINGLES Hospi danish VACCINES (2 of 3)] Future Scheduled Test 2023-07-08 COVID-19 VACCINE (6 - [facility] 22:10:15 Mixed Product series) Hospit al [code = COVID-19 VACCINE (6 - Mixed Product series)] Future Scheduled Test 2023-07-08 BREAST CANCER [facility] 22:10:15 SCREENING [code = Hospital BREAST CANCER SCREENING] Future Scheduled Test 2023-07-08 INFLUENZA VACCINE (#1) [facility] 22:10:15 [code = INFLUENZA Hospital VACCINE (#1)] Future Scheduled Test 2023-06-26 Influenza Vaccine (#1) [facility] 00:00:00 [code = Influenza Medical Ce nter Vaccine (#1)] Future Scheduled Test 2022-10-[address] [facility] 00:00:00 (12+) [code = Medical Center DEPRESSION SCREENING (12+)] Future Scheduled Test 2022-10-26 FALLS RISK SCREENING [facility] 00:00:00 [code = FALLS RISK Medical C enter SCREENING] Future Scheduled Test 2022-08-14 [facility]ening [facility] malignant neoplasm of Medica l Center breast (procedure) [code = 933072690] Future Scheduled Test 2019-10-[address] [facility] 00:00:00 WELLNESS (YEAR 2 or Medical Center FIRST YEAR if no IPPE) [code = MEDICARE ANNUAL WELLNESS (YEAR 2 or FIRST YEAR if no IPPE)] Future Scheduled Test 2015 PNEUMOCOCCAL 65+ YRS [facility] 00:00:00 (1 - PCV) [code = Medical Ce nter PNEUMOCOCCAL 65+ YRS (1 - PCV)] Future Scheduled Test 2000-01-05 SHINGLES VACCINES ([address] [facility] 00:00:00 of 2) [code = SHINGLES Medic al Center VACCINES (1 of 2)] Future Scheduled Test 1969 DTAP/TDAP/TD VACCINES [facility] 00:00:00 (1 - Tdap) [code = Medical C enter DTAP/TDAP/TD VACCINES (1 - Tdap)] Future Scheduled Test 1968-01-05 HEPATITIS C SCREENING [facility] 00:00:00 [code = HEPATITIS C Medical Center SCREENING] Future Scheduled Test [address] [facility] 00:00:00 Counseling and Medical Cente r Screening (12+) [code = Tobacco Cessation Counseling and Screening (12+)] Future Scheduled Test 1950 COVID-19 VACCINE (#1) [facility] 00:00:00 [code = COVID-[address] VACCINE (#1)] Future Scheduled Test 1950 [facility] for [facility] 00:[facility]:00 malignant neoplasm of Medica l Center colon (procedure) [code = 308658435] Future Scheduled Test 1950 Sigmoidoscopy [code = [facility] 00:00:00 Sigmoidoscopy] Medical Cente r Future Scheduled Test [address] [facility] 00:00:00 (combo) [code = CT Medical C enter Colonography (combo)] Future Scheduled Test 1950 [facility]ening for [facility] 00:00:00 malignant neoplasm of Medica l Center colon (procedure) [code = 804259582] Future Scheduled Test 1950 [facility]ening for [facility] 00:00:00 malignant neoplasm of [facility] colon (procedure) [code = 657759552] Future Scheduled Test 1950 DXA SCAN [code = DXA [facility] 00:00:00 SCAN] [facility] Future Scheduled Test 1950 [facility] for [facility] 00:00:00 malignant neoplasm of [facility] colon (procedure) [code = 295316227] Future Appointment 2024-07-15 Wesley Cortez, [facility] 00:00:[address], [place] [address] [facility] Encounters Start End Encounter Admission Attending Care Care Encounter Source Date/Time Date/Time Type Type Clinicians Facility Department ID 2023-07-15 2023-07-15 Outpatient Niefield_S_ VFP VFP [id number] [facility] 00:00:00 00:00:00 SAMY [id number] Family Practic e 2023-07-15 2023-07-15 Wesley VFP [place] - [id number] V illage 00:00:00 00:00:00 [facility], Medical - Prac tic MD: [id number] [place] - e [facility] [address], [place] [address] , Ph. 2023-07-14 2023-07-14 Outpatient Niefield_S_ VFP VFP [id number] [facility] 00:00:00 00:00:00 SAMY [id number] Family Practic e 2023-02-05 2023-02-05 Outpatient Niefield_S VFP VFP 1612 [id number] [facility] 00:00:00 00:00:00 [id number] Family Practic e 2023-02-05 2023-02-05 Outpatient Niefield_S VFP VFP 1612 [id number] [facility] 00:00:00 00:00:00 [id number] Family Practic e 2022-12-18 2022-12-[address]840.1 [id number] [facility] 11:47:39 23:59:00 Encounter Sarthak Weinberg [address]39.1.[address] 3.430.2.7 Hospit a .3.045702 l .8 2022-12-18 2022-12-18 [facility], 1.2.840.1 [id number] Methodi 11:47:39 23:59:00 Encounter Sarthak Weinberg 36240.1.[address] 3.430.2.7 Hospit a .3.898532 l .8 2022-12-18 2022-12-18 [facility], 1.2.840.1 [id number] Methodi 09:59:05 11:46:00 Encounter Sarthak Weinberg 60763.1.[address] 3.430.2.7 Hospit a .3.297604 l .8 2022-12-18 2022-12-18 [facility], 1.2.840.1 [id number] Methodi 09:59:05 11:46:00 Encounter Sarthak Jameson50.1.[address] 3.430.2.7 Hospit a .3.121676 l .8 2022-12-18 2022-12-18 Travel 1.2.840.1 1.2.597.632 [id number] Methodi 00:00:00 00:00:[address] 3.430.2.7 0.2.7.3.698 Ho spita .3.012995 084.8 l .8 2022-12-18 2022-12-18 Travel 1.2.840.1 1.2.855.159 [id number] [id number] Methodi 00:00:00 00:00:[address] 3.430.2.7 0.2.7.3.698 Ho spita .3.367638 084.8 l .8 2022-12-15 2022-12-15 Travel 1.2.840.1 1.2.915.114 [id number] [id number] Methodi 00:00:00 00:00:[address] 3.430.2.7 0.2.7.3.698 Ho spita .3.973441 084.8 l .8 2022-12-15 2022-12-15 Travel 1.2.840.1 1.2.425.040 4117 [id number] Methodi 00:00:00 00:00:[address] 3.430.2.7 0.2.7.3.698 Ho spita .3.202058 084.8 l .8 2022-12-02 2022-12-02 Travel 1.2.840.1 1.2.331.568 1431 [id number] Methodi 00:00:00 00:00:[address] 3.430.2.7 0.2.7.3.698 Ho spita .3.839039 084.8 l .8 2022-12-02 2022-12-02 Travel 1.2.840.1 1.2.966.986 8976 [id number] Methodi 00:00:00 00:00:[address] 3.430.2.7 0.2.7.3.698 Ho spita .3.191318 084.8 l .8 2022-12-01 2022-12-01 [facility] Vicente, 1.2.840.1 [id number] [id number] Methodi 00:00:00 00:00:00 Alessandro Weinberg 62051.1.1 084 s t 3.430.2.7 Hospit a .3.335136 l .8 2022-12-01 2022-12-01 [facility] Vicente, 1.2.840.1 [id number] [id number] Methodi 00:00:00 00:00:00 Alessandro Weinberg 61930.1.1 084 s t 3.430.2.7 Hospit a .3.188247 l .8 2022-07-15 2022-07-15 Outpatient Niefield_S VFP VFP [id number] [facility] 00:00:00 00:00:00 [id number] Family Practic e 2022-07-15 2022-07-15 Wesley VFP [place] - [id number] V illage 00:00:00 00:00:00 [facility] Family Annmarie, Medical - Prac tic : [address]_ROMAN_Talat e [address] [place] [address] In [address] , Medicine [address], [place] [address] , Ph. 2021-12-05 2021-12-05 Outpatient Niefield_S VFP VFP [id number] [id number] [facility] 02:57:00 02:57:00 [id number] Family Practic e 2021-11-20 2021-11-20 Laboratory Only, Ang Db Test [facility] 1.2.8 40.114 [id number] Univers 10:45:00 11:00:00 Only Qiana, [facility] 350.1.13.10 ity of [place] 4.2.7.2.686 Chuck as JUVENAL?BLEA [phone] Nh claudia WYATT [address] [facility] 2021-11-20 2021-11-20 Outpatient R [facility] [id number] Univers 10:45:00 10:45:00 ASHA partida o lora [facility] 2021-11-20 2021-11-20 Orders Doctor KATHRYN 1.2.840.114 [id number] Univers 00:00:00 00:00:00 Only Unassigned, RICHARD 350.1.13.10 ity of [facility] 4.2.7.2.686 Chuck as [phone] [address] 2021-11-01 2021-11-01 Outpatient [facility]_S VFP VF 161 [id number] [facility] 05:11:00 05:11:00 [id number] Family Practic e 2021-08-03 2021-08-03 [facility] 1.2.840.114 [id number] Univers 11:18:41 23:59:00 Encounter [facility] 350.1.13.10 ity of [place] 4.2.7.2.686 Chuck as Juvenal?Blea [id number] Nh claudia bettencourt [address] [facility] 2021-08-03 2021-08-03 [facility] 1.2.840.114 [id number] Univers 10:48:10 11:26:35 Care [facility] 350.1.13.10 it y of [place] 4.2.7.2.686 Chuck as Juvenal?Blea [phone] [facility] [address] Medical Office Building 2021-08-03 2021-08-03 Outpatient R OLGA LIDIA [facility] [id number] Univers 11:00:00 11:00:00 NELIA isaura [facility] 2021-07-23 2021-07-23 [facility] [id number] 00:00:00 00:00:[address] MINESH [address] 2021-07-02 2021-07-02 Outpatient Niefield_S VFP [facility] 1612 [id number] [facility] 11:36:00 11:36:00 [id number] Family Practic e 2021-06-28 2021-06-28 Wesley Niefield_S [facility] [id number] [facility] 00:00:00 00:00:00 [facility] [id number] [facility], Medical - Prac tic MD: 4543 VM_HOU_Asso e Post [facility] In Place , Medicine [address], [place] [address] , Ph. 2021-06-19 2021-06-19 [facility] [id number] 00:00:00 00:00:00 MINESH [address] 2021-06-11 2021-06-11 Letter KATHRYN Grimm 1.2.840.114 [id number] Univers 00:00:00 00:00:00 (Out) Kallie RAOMS 350.1.13.10 it y of [facility] 4.2.7.2.686 Chuck as [id number] [address] 2021-06-10 2021-06-10 Outpatient Romulo BENITEZ [facility] [id number] [facility] 09:15:00 09:15:00 ASHA paulino [facility] 2021-06-10 2021-06-10 Letter Doctor PERALTA [id number] [facility] 00:00:00 00:00:00 (Out) Unassigned, RICHARD [id number] ity of [place] [facility] [id number] Chuck as [phone] [place] [id number] [address] 2021-06-10 2021-06-10 Letter Doctor KATHRYN [id number] [facility] 00:00:00 00:00:00 (Out) Unassigned, RICHARD [id number] ity of [place] [facility] [id number] Chuck as [phone] [place] [id number] [address] 2021-06-07 2021-06-07 Outpatient [place]_S VFP VFP [id number] [facility] 12:20:00 12:20:00 [id number] Family Practic e 2021-06-04 2021-06-04 Outpatient [facility] [id number] 00:00:00 00:00:00 MINESH 725 Method i 2021-06-03 2021-06-03 [facility]patient [facility] [id number] 00:00:00 00:00:00 MINESH 459 Method i 2021-05-30 2021-05-30 Outpatient [facility] [id number] 00:00:00 00:00:00 MINESH 559 Method i 2020-08-14 2020-08-[address] [facility] [id number] [facility] 00:00:00 00:00:00 LUIS DE DIOS Results Test Description Test Time Test Comments Results Result Comments Source POC creatinine 2022-12-18 17:09:00 Test Item Value Reference Range Interpretation Comme nts POC creatinine (test code = 0.8 mg/dl 0.5-0.9 Elevator Constructor Name: Letciia [id number]) Catarina Padilla D: [id number] [facility] [id number] 17:09:00 Test Item Value Reference Range Interpretation Comments Estimated GFR (test 73 mL/min/1.73 m2 [facility] Units code = 30497-3) Interpretati onG1 >=90 Normal or highG 2 60-89 Mildly decrease dG3a 45-59 Mildly to moder ately [id number] 30 -44 Moderately to s everely decreasedG4 15- 29 Severely decreasedG5 <15 Kidney failureThe eGFR was calculated usin g the Chronic Kidney Disease Epidemiology Co llaboration (CKD-EPI) equat ion. Interpretation is based on recommendations of the National Kidney Foundation-Kidn ey Disease Outcomes Qualit y Initiative (NKF-KDOQI) pub lished in 2014. [facility] [id number] 17:09:00 Test Item Value Reference Range Interpretation Comments POC creatinine (test 0.8 mg/dl 0.5-0.9 Operato r Name: Leticia code = 90280-7) Katiana jaramillo ID: [id number] [facility] [id number] 17:09:00 Test Item Value Reference Range Interpretation Comments Estimated GFR (test 73 mL/min/1.73 m2 [facility] Units code = 86889-6) Interpretati onG1 >=90 Normal or highG 2 60-89 Mildly decrease dG3a 45-59 Mildly to moder ately [id number] 30 -44 Moderately to s everely decreasedG4 15- 29 Severely decreasedG5 <1 5 Kidney failureThe eGFR was calculated usin g the Chronic Kidney Disease Epidemiology Co llaboration (CKD-EPI) equat ion. Interpretation is based on recommendations of the National Kidney Foundation-Kidn ey Disease Outcomes Qualit y Initiative (NKF-KDOQI) pub lished in 2014. [facility], DIGITAL, MAMMO, SCREENING, WITH ANGEL, BILATERAL INCLUDING [id number] 15:14:00Diagnostic workup per radiologist?->YesReason for Exam:->Encounter for screening mammogram [facility] 1950 Sex: FMRN#: [id number] - MM, DIGITAL, MAMMO, SCREENING, WITH ANGEL, BILATERAL INCLUDING CAD BILATERAL DIGITAL SCREENING MAMMOGRAM 3D/2D WITH CAD: 08/14/2020 Comparison is made to exams dated: 07/20/2019 mammogram, 10/08/2017 mammogram, and 09/25/2016 mammogram - [facility]. The tissue of both breasts is heterogeneously dense. This may lower the sensitivity of mammography. Tomosynthesis 3D imaging of the breast was also performed. Current study was also evaluated with a Computer Aided Detection (CAD) system. Benign appearing calcifications are present in both breasts. Examination indicates a biopsy marker in the right breast. No significant masses, calcifications, or other findings are seen in either breast. IMPRESSION: There is no mammographic evidence of malignancy. A 1 year screening mammogram is recommended. Kimberlee Quinones M.D. pth/penrad:08/14/2020 15:14:41 Normal Exam Mammogram BI-RADS: 2 Benign MM, DIGITAL, MAMMO, SCREENING, BILATERAL INCLUDING CAD 2019-07-20 11:31:00Diagnostic workup per radiologist?->YesReason for Exam:->z12.31MRN#: [id number] - MM, DIGITAL, MAMMO, SCREENING, BILATERAL INCLUDING CADBILATERAL DIGITAL SCREENING MAMMOGRAM WITH CAD: 07/20/2019CLINICAL: Routine screening mammogram. Comparison is made to exams dated: 10/08/2017 mammogram, 09/25/2016 mammogram, 08/03/2015 mammogram, 08/02/2014 mammogram, 08/01/2013 mammogram, and 05/21/2012 mamm[facility] - [facility]. The tissue of both breasts is heterogeneously dense. This may lower the sensitivity of mammography. Current study was also evaluated with a Computer Aided Detection (CAD) system. Benign appearing calcifications are present in both breasts. There is a biopsy marker in the right breast. No significant masses, calcifications, or other findings are seen in either breast. There has been no significant interval change. IMPRESSION: BENIGNThere is no mammographic evidence of malignancy. A 1 year screening mammog marielena is recommended. John Lundy M.D. ds/:07/20/2019 11:31:39 Normal Exam Mammogram BI-RADS: 2 Benign G0202 MM, DIGITAL, MAMMO, SCREENING, BILATERAL INCLUDING CAD 2017-10-08 11:16:00Reason for Exam:->Z12.31MRN#: [id number] - MM, DIGITAL, MAMMO, SCREENING, BILATERAL INCLUDING CADBILATERAL DIGITAL SCREENING MAMMOGRAM WITH CAD: 10/08/2017Comparison is made to exams dated: 09/25/2016 mammogram and 08/03/2015 mammogram - [facility]. The tissue of both breasts is heterogeneously dense. This may lower the sensitivity of mammography. Current study was also evaluated with a Computer Aided Detection (CAD) system. Benign appearing calcifications are present in both breasts. Examination indicates a biopsy marker in the right breast. No significant masses, calcifications, or other findings are seen in either breast. IMPRESSION: BENIGNThere is no mammographic evidence of malignancy. A 1 year screening mammogram is recommended. Kimberlee Quinones M.D. pth/penrad:10/08/2017 11:16:20 Normal Exam Mammogram BI-RADS: 2 Benign G0202
[2023-09-13] MEDS ORDERED: ONDANSETRON 4 MG/2 ML VIAL ONE (18:43)
[2023-09-13] MEDS ORDERED: FENTANYL CITR 100 MCG/2 ML ONE (18:43)
[2023-09-13 18:53] LABS: Absolute Lymphocytes (CBC) 0.4 K/uL (0.7-4.9); Hematocrit 35.9 % (36.0-45.0); MCV 93.4 fL (80-100); Platelets 159 thou/uL (152-406); RBC Red Blood Cell Count 3.84 M/uL (3.86-4.86)
[2023-09-13 19:08] LABS: Albumin 3.3 g/dL (3.4-5.0); Bilirubin Total 0.3 mg/dL (0.2-1.0); Potassium 4.3 mEq/L (3.5-5.1); Protein, Total 7.1 g/dL (6.4-8.2)
[2023-09-13 19:24] LABS: Blood Morphology Comment NOT SEEN (NOT SEEN); Platelet Estimate ADEQ; White Blood Cell Scan OK (OK)
--- NOTE | 2023-09-13 19:54 | RAD REPORT ---
EXAM DESCRIPTION: CT - CTFBWCON CLINICAL HISTORY: FACIAL PAIN Right-sided pain and swelling COMPARISON: <Comparisons> TECHNIQUE: Axial 2 mm thick images of the face were obtained with sagittal and coronal reconstructio n images. All CT scans are performed using dose optimization technique as appropriate and may include automated exposure control or mA/KV adjustment according to patient size. FINDINGS: Moderate inflammation is seen along the right side of jaz mandibular soft tissues.Small p eriapical abscess is present right posterior premolar measuring 2-3 mm.The mandible is intact. No sof t tissue abscess is seen. The globes and orbital contents are grossly unremarkable.The paranasal sinuses and mastoids are clear . A few mildly prominent bilateral jugular chain lymph nodes are present. IMPRESSION: Soft tissue inflammation is seen right perimandibular soft tissue without discrete absce ss seen. Findings are most likely odontogenic in etiology.
[2023-09-13] MEDS ORDERED: CLINDAMYCIN 900MG/D5W 900 MG/50 ML IVPB IV ONE (20:51)
[2023-09-13] MEDS ORDERED: MORPHINE 4 MG/ML SYR ONE (20:51)
--- NOTE | 2023-09-13 21:32 | ER ---
Nurse's Notes [facility] Name: Katie York Age: 73 yrs Sex: Female : 1950 Arrival Date: 09/13/2023 Time: 16:33 Bed 5 Private MD: Diagnosis: Periapical abscess without sinus Presentation: 09/13 16:52 Chief complaint: Patient states: she has been having right sided facial pain that ap3 radiates from a tooth. patient states she was seen by an urgent care yesterday. Patient reports she attempted to call her dentist but no one answered due to the weekend. Coronavirus screen: At this time, the client does not indicate any symptoms associated with coronavirus-19. Ebola Screen: No symptoms or risks identified at this time. Initial Sepsis Screen: Does the patient meet any 2 criteria? HR > 90 bpm. Does the patient have a suspected source of infection? No. Patient's initial sepsis screen is negative. Risk Assessment: Do you want to hurt yourself or someone else? Patient reports no desire to harm self or others. Onset of symptoms was September 06, 2023. 16:52 Method Of Arrival: Ambulatory ap3 17:11 Acuity: DORIS 3 hb Triage Assessment: 16:56 General: Appears in no apparent distress. Behavior is calm, cooperative, appropriate ap3 for age. Pain: Complains of pain in right jaw Pain currently is 8 out of 10 on a pain scale. EENT: Reports pain in right jaw. Neuro: Level of Consciousness is awake, alert, obeys commands, Oriented to person, place, time, situation, Appropriate for age. Cardiovascular: Patient's skin is warm and dry. Respiratory: Airway is patent Respiratory effort is even, unlabored, Respiratory pattern is regular, agonal. Historical: - Allergies: 16:54 tramadol; ap3 16:54 Hydrocodone-Acetaminophen; ap3 16:54 Codeine; ap3 - Home Meds: 16:55 Metoprolol Tartrate Oral [Active]; Xarelto oral [Active]; ap3 - PMHx: 16:55 Atrial fibrillation; ap3 - PSHx: 16:55 PAULINE knee replaceement; ap3 - Immunization history:: Client reports receiving the 2nd dose of the Covid vaccine. - Social history:: Smoking status: Patient denies any tobacco usage or history of. Screenin:56 [facility] ED Fall Risk Assessment (Adult) History of falling in the last 3 months, ap3 including since admission No falls in past 3 months (0 pts). Abuse screen: Denies threats or abuse. Nutritional screening: No deficits noted. Tuberculosis screening: No symptoms or risk factors identified. Assessment: 18:46 General: Appears in no apparent distress. Behavior is calm, cooperative. Pain: iw Complains of pain in face and right jaw. Neuro: Level of Consciousness is awake, alert, obeys commands, Oriented to person, place, time, situation. Vital Signs: 16:52 BP 135 / 89; Pulse 104; Resp 18; Temp 97.9; Pulse Ox 100% ; Weight 55.79 kg; Pain 8/10; ap3 18:49 BP 122 / 78; Pulse 85; Resp 16; Pulse Ox 96% on R/A; iw 16:52 Pain Scale: Adult ap3 ED Course: 16:35 Patient arrived in ED. rg4 16:47 Tomeka Jones PA-C is [facility]. sb4 16:47 Clemente Cueva MD is Attending Physician. sb4 16:54 Triage completed. ap3 16:57 Arm band placed on right wrist. ap3 18:24 Estephania Barclay RN is Primary Nurse. iw 18:35 Inserted saline lock: 20 gauge in right antecubital area, using aseptic technique. ds4 Blood collected. 19:30 CT Facial Bones W/ Con \T\ Mpr In Process Unspecified. EDMS 22:20 Patient has correct armband on for positive identification. Bed in low position. Call la4 light in reach. Side rails up X2. 22:20 Provided Education on: plan of care. la4 22:20 No provider procedures requiring assistance completed. IV discontinued, bleeding la4 controlled, No redness/swelling at site. Pressure dressing applied. Administered Medications: 18:45 Drug: fentaNYL (PF) IVP 25 mcg IVP once Route: IVP; Site: right antecubital; iw 22:22 Follow up: Response: No adverse reaction; Pain is decreased la4 18:45 Drug: Ondansetron IVP 4 mg IVP once; over 2 minutes Route: IVP; Site: right antecubital;iw 20:45 Drug: Clindamycin IVPB 900 mg IVPB once over 30 mins; (mix in 50 mL) Route: IVPB; la4 Infused Over: 30 mins; Site: right antecubital; 22:21 Follow up: Response: No adverse reaction; IV Intake: 100ml la4 20:46 Drug: morphine IVP or IV 4 mg IVP once over 4 mins Route: IVP; Infused Over: 4 mins; la4 Site: right antecubital; 22:21 Follow up: Response: No adverse reaction; Pain is decreased la4 Medication: 22:20 VIS not applicable for this client. la4 Intake: 22:21 IV: 100ml; Total: 100ml. la4 Outcome: 21:32 Discharge ordered by MD. sb4 22:19 Discharged to home ambulatory, la4 22:19 Condition: good 22:19 Discharge instructions given to patient, Instructed on follow up and referral plans. Demonstrated understanding of instructions, follow-up care, Prescriptions given X 1, 22:21 Patient left the ED. la4 Signatures: Dispatcher [employer] EDMS Estephania Barclay RN RN iw Swanson, Donovan ds4 Carmencita Rodriguez RN RN Silvia Ruiz4 Yara Lovell RN RN jimi3 Tomeka Jones, PA-C PA-C sb4 Yg Sahu RN RN la4 Corrections: (The following items were deleted from the chart) 16:56 16:54 Allergies: No Known Allergies; ap3 ap3 17:11 16:52 Acuity: DORIS 4 ap3 ap3 18:00 17:11 Acuity: DORIS 4 ap3 hb
--- NOTE | 2023-09-13 21:32 | EDPHYS ---
Physician Documentation [facility] Name: Katie York Age: 73 yrs Sex: Female : 1950 Arrival Date: 09/13/2023 Time: 16:33 Bed 5 Private MD: ED Physician Clemente Cueva HPI: 09/13 19:16 This 73 yrs old Female presents to ER via Ambulatory with complaints of Toothache, sb4 Facial Swelling. 19:16 The patient presents with pain. The problem is located in the right jaw. Onset: The sb4 symptoms/episode began/occurred 2 week(s) ago. Duration: The symptoms are intermittent. The patient has been recently seen at an urgent care, yesterday, for similar complaints, was given a prescription for pain medications. Historical: - Allergies: 16:54 tramadol; ap3 16:54 Hydrocodone-Acetaminophen; ap3 16:54 Codeine; ap3 - Home Meds: 16:55 Metoprolol Tartrate Oral [Active]; Xarelto oral [Active]; ap3 - PMHx: 16:55 Atrial fibrillation; ap3 - PSHx: 16:55 PAULINE knee replaceement; ap3 - Immunization history:: Client reports receiving the 2nd dose of the Covid vaccine. - Social history:: Smoking status: Patient denies any tobacco usage or history of. ROS: 09/14 03:14 Constitutional: Negative for fever, chills, and weight loss, sb4 ENT: Positive for dental pain, facial swelling, All other systems are negative, Exam: 03:14 Constitutional: This is a well developed, well nourished patient who is awake, alert, sb4 and in no acute distress. Eyes: Extra-ocular motions intact. Periorbital areas with no swelling, redness, or edema. ENT: Mucous membranes moist. Cardiovascular: Regular rate and rhythm with a normal S1 and S2. Respiratory: Lungs have equal breath sounds bilaterally, clear to auscultation and percussion. No rales, rhonchi or wheezes noted. No increased work of breathing, no retractions or nasal flaring. Abdomen/GI: Soft, non-tender, no distension. Skin: Warm, dry with normal turgor. Normal color with no rashes, no lesions, and no evidence of cellulitis. MS/ Extremity: Pulses equal, no cyanosis. Neurovascular intact. Full, normal range of motion. Neuro: Awake and alert, GCS 15, oriented to person, place, time, and situation. Motor strength 5/5 in all extremities. Sensory grossly intact. 03:14 Head/face: Noted is tenderness, that is moderate, of the right jaw, right jaw swelling. Vital Signs: 09/13 16:52 BP 135 / 89; Pulse 104; Resp 18; Temp 97.9; Pulse Ox 100% ; Weight 55.79 kg; Pain 8/10; ap3 18:49 BP 122 / 78; Pulse 85; Resp 16; Pulse Ox 96% on R/A; iw 16:52 Pain Scale: Adult ap3 MDM: 16:50 Patient medically screened. sb4 09/14 03:14 Differential diagnosis: dental caries, gingivitis, dental abscess, pericoronitis. Data sb4 reviewed: vital signs, nurses notes, lab test result(s), radiologic studies, and as a result, I will discharge patient. Counseling: I had a detailed discussion with the patient and/or guardian regarding the historical points, exam findings, and any diagnostic results supporting the discharge/admit diagnosis, lab results, radiology results, the need for outpatient follow up, a dentist, to return to the emergency department if symptoms worsen or persist or if there are any questions or concerns that arise at home. 09/13 17:05 Order name: Blood Culture Adult (2) 4 09/13 17:05 Order name: CBC with Diff; Complete Time: 19:25 4 09/13 17:05 Order name: CMP; Complete Time: 19:13 sb4 09/13 17:05 Order name: Lactate w/ 2H reflex if indic.; Complete Time: 19:13 sb4 09/13 19:25 Order name: CBC Smear Scan; Complete Time: 19:25 EDMS 09/13 17:05 Order name: CT Facial Bones W/ Con \T\ Mpr; Complete Time: 19:56 sb4 09/13 17:05 Order name: IV Saline Lock - Large Bore; Complete Time: 18:35 sb4 09/13 17:05 Order name: Labs collected and sent; Complete Time: 18:35 sb4 Administered Medications: 09/13 18:45 Drug: fentaNYL (PF) IVP 25 mcg IVP once Route: IVP; Site: right antecubital; iw 22:22 Follow up: Response: No adverse reaction; Pain is decreased la4 18:45 Drug: Ondansetron IVP 4 mg IVP once; over 2 minutes Route: IVP; Site: right antecubital;iw 20:45 Drug: Clindamycin IVPB 900 mg IVPB once over 30 mins; (mix in 50 mL) Route: IVPB; la4 Infused Over: 30 mins; Site: right antecubital; 22:21 Follow up: Response: No adverse reaction; IV Intake: 100ml la4 20:46 Drug: morphine IVP or IV 4 mg IVP once over 4 mins Route: IVP; Infused Over: 4 mins; la4 Site: right antecubital; 22:21 Follow up: Response: No adverse reaction; Pain is decreased la4 Disposition Summary: 09/13/23 21:32 Discharge Ordered Notes: Location: Home sb4 Problem: new sb4 Symptoms: are unchanged sb4 Condition: Stable sb4 Diagnosis - Periapical abscess without sinus sb4 Followup: sb4 - With: Private Physician - When: Tomorrow - Reason: Recheck today's complaints, Re-evaluation by your physician Discharge Instructions: - Discharge Summary Sheet sb4 - Dental Pain sb4 Forms: - Medication Reconciliation Form sb4 - Thank You Letter sb4 - Antibiotic Education sb4 - Prescription Opioid Use sb4 - Patient Portal Instructions sb4 - Leadership Thank You Letter sb4 Prescriptions: - Clindamycin HCl 300 mg Oral Capsule - take 1 capsule ORAL route every 6 hours for 10 days; 40 capsule; Refills: 0, sb4 Product Selection Permitted Signatures: Dispatcher [employer] Estephania Olivia RN RN iw Prokisch, Amanda RN RN Tomeka Jacobs PAMily PAMily sb4 Yg Sahu RN RN la4 Corrections: (The following items were deleted from the chart) 16:56 16:54 Allergies: No Known Allergies; ap3 dianne
[2023-09-13 22:25] VITALS: TEMP 97.9
[2023-09-13 22:26] VITALS: BP 122/78; O2SAT 96
== END 2023-09-13 22:21 | disposition home or self-care (01) ==
LOC: ER 16:33
DX: K04.7 Periapical abscess without sinus (principal); I48.91 Unspecified atrial fibrillation; Z79.899 Other long term (current) drug therapy; Z88.5 Allergy status to narcotic agent
CPT/HCPCS: 87040 ×2; 85025; 36415; 83605; 80053; 70487; 76377; 96375; 96374; 99284; Q9967; J3010; J2405

== ENCOUNTER 2024-03-30 11:03 | Emergency (ER) | payer OTHER ==
[2024-03-30 11:57] LABS: Absolute Basophils 0.1 K/uL (0-0.5); Absolute Eosinophils 0.1 K/uL (0-0.5); Absolute Lymphocytes (CBC) 0.8 K/uL (0.7-4.9); Absolute Monocytes 0.5 K/uL (0.1-1.3); Absolute Neutrophil 4.6 K/uL (1.8-8.0); Basophils % 1.3 % (0-1.3); Eosinophils % 1.6 % (0-4.4); Hematocrit 38.2 % (36.0-45.0); Hemoglobin 12.7 g/dL (12.0-15.0); MCH 30.7 pg (27.0-35.0); MCHC 33.3 g/dL (32.0-36.0); MCV 92.4 fL (80-100); MPV 7.6 fL (7.6-11.3); Monocytes % 8.1 % (3.3-12.3); Platelets 201 thou/uL (152-406); RBC Red Blood Cell Count 4.14 M/uL (3.86-4.86); Red Cell Distribution Width 12.7 % (12.1-15.2)
[2024-03-30 12:02] LABS: PT Prothrombin Time 32.1 SECONDS (9.5-12.5); Protime INR 3.01
[2024-03-30 12:08] LABS: Specific Gravity 1.015 (1.005-1.030); Sqamous Epithelial <5 /HPF (None Seen); Urine Bacteria <20 /HPF (<20); Urine Bilirubin NEGATIVE (Negative); Urine Blood Trace (Negative); Urine Clarity Clear (Clear); Urine Color Yellow (Yellow); Urine Culture Reflex Order NOT NEEDED; Urine Glucose NEGATIVE (Negative); Urine Ketones NEGATIVE (Negative); Urine Microscopic Reflex YN ORDER UMIC; Urine Mucus Slight /HPF (None Seen); Urine Nitrite NEGATIVE (Negative); Urine Protein NEGATIVE (Negative); Urine RBC <5 /HPF (None Seen); Urine Urobilinogen Normal (Normal); Urine WBC <5 /HPF (<5); Urine pH 5.5 (5.0-7.0)
[2024-03-30 12:24] LABS: Albumin 3.5 g/dL (3.4-5.0); Albumin/Globulin Ratio 0.9 (1.1-1.8); Anion Gap 8.1 mEq/L (5.0-15.0); Bilirubin Direct 0.2 mg/dL (0-0.2); Bilirubin Indirect, Calculated 0.4 mg/dL (0.2-0.8); Bilirubin Total 0.6 mg/dL (0.2-1.0); Globulin 3.8 g/dL (2.3-3.5); Magnesium 2.4 mg/dL (1.6-2.4); Potassium 4.1 mEq/L (3.5-5.1); Protein, Total 7.3 g/dL (6.4-8.2); Thyroid Stimulating Hormone 2.64 uIU/mL (0.358-3.740); Troponin High Sensitivity 4.6 pg/mL (<58.9)
--- NOTE | 2024-03-30 12:33 | RAD REPORT ---
[facility]23 [facility] CLINICAL HISTORY: COUGH COMPARISON: No comparisons TECHNIQUE: Portable AP view of the chest. FINDINGS: Dextroconvex scoliosis somewhat limits evaluation. Diffuse hyperinflation, suggests underl sadi COPD. The lungs are clear. No pneumothorax or effusion. The cardiomediastinal contours are unre markable. IMPRESSION: No acute cardiopulmonary process.
--- NOTE | 2024-03-30 12:45 | RAD REPORT ---
EXAM DESCRIPTION: CT - Head Brain Wo Cont - 03/30/2024 12:37 pm CLINICAL HISTORY: PAIN Headache, drowsiness COMPARISON: <Comparisons> TECHNIQUE: All CT scans are performed using dose optimization technique as appropriate and may inclu de automated exposure control or mA/KV adjustment according to patient size. FINDINGS: No intracranial hemorrhage, hydrocephalus or extra-axial fluid collection.Mild brain atrop hy.No areas of brain edema or evidence of midline shift. The paranasal sinuses and mastoids are clear. The calvarium is intact. IMPRESSION: No acute intracranial abnormality.
--- NOTE | 2024-03-30 12:54 | RAD REPORT ---
EXAM DESCRIPTION: CT - Head angio - 03/30/2024 12:37 pm CLINICAL HISTORY: PAIN Headache, drowsiness COMPARISON: <Comparisons> TECHNIQUE: CT angiography of the head was performed with MIPs. All CT scans are performed using dose optimization technique as appropriate and may include automated exposure control or mA/KV adjustment according to patient size. FINDINGS: No evidence of large vessel occlusion. No evidence of aneurysm is detected. No flow-limiti ng stenosis or vascular malformation identified. Antegrade flow is seen in the vertebral arteries. Left vertebral artery appears mildly dominant. The visualized dural venous sinuses are patent. IMPRESSION: No significant flow abnormality is detected.
--- NOTE | 2024-03-30 12:59 | RAD REPORT ---
EXAM DESCRIPTION: CT - Neck Angio - 03/30/2024 12:37 pm CLINICAL HISTORY: PAIN Headache, drowsiness, dizziness multiple COMPARISON: <Comparisons> TECHNIQUE: CT angiography of the neck vessels was performed with MIPs. All CT scans are performed using dose optimization technique as appropriate and may include automated exposure control or mA/KV adjustment according to patient size. FINDINGS: A left aortic arch is identified with normal three vessel configuration of the great vesse ls. No significant flow abnormality is seen of the common carotid bilaterally. Mild soft plaque is present left carotid bulb. Stenosis of less than 50%. Mild hard plaque right johnson tid bulb without significant stenosis. Normal flow is seen within both vertebral arteries. 3 cm right thyroid nodule noted. IMPRESSION: No significant flow abnormality of the neck vessels is identified. Mild mixed plaque lef t carotid bulb results in stenosis of less than 50% based on NASCET criteria. 3 cm right thyroid nodule. Nonemergent thyroid ultrasound followup would be recommended. NASCET criteria used. Mild 0-49% stenosis Moderate 50-69% stenosis Severe 70-99% stenosis
[2024-03-30] MEDS ORDERED: FENTANYL CITR 100 MCG/2 ML ONE (13:05)
[2024-03-30] MEDS ORDERED: ONDANSETRON 4 MG/2 ML VIAL ONE (13:05)
[2024-03-30] MEDS ORDERED: ACETAMINOPHEN 325 MG TABLET ONE (13:17)
[2024-03-30] MEDS ORDERED: METOPROLOL TAR 25 MG TAB ONE (13:33)
--- NOTE | 2024-03-30 14:10 | ER ---
Nurse's Notes [facility] Name: Katie York Age: 74 yrs Sex: Female : 1950 Arrival Date: 03/30/2024 Time: 11:03 Bed 16 Private MD: Diagnosis: Headache;Persistent atrial fibrillation;terminal make up operator (current) use of anticoagulants;Occlusion and stenosis of left carotid artery-LESS THAN 50% CAROTID;Nontoxic single thyroid nodule-3 CM RIGHT Presentation: 03/30 11:11 Chief complaint: Patient states: she has been having a headache and feeling a pulsing ap3 in her ears for approx one week. patient states she has never had this happen before. patient currently rates her pain as a 4/10 on the pain scale. Coronavirus screen: At this time, the client does not indicate any symptoms associated with coronavirus-19. Ebola Screen: No symptoms or risks identified at this time. Initial Sepsis Screen: Does the patient meet any 2 criteria? No. Patient's initial sepsis screen is negative. Does the patient have a suspected source of infection? No. Patient's initial sepsis screen is negative. Risk Assessment: Do you want to hurt yourself or someone else? Patient reports no desire to harm self or others. Onset of symptoms was March 23, 2024. 11:11 Method Of Arrival: Ambulatory ap3 11:27 Acuity: DORIS 2 ap3 Triage Assessment: 11:13 General: Appears in no apparent distress. Behavior is calm, cooperative, appropriate ap3 for age. Pain: Complains of pain in right ear and left ear and head Pain currently is 4 out of 10 on a pain scale. at worst was 10 out of 10 on a pain scale. Pain began one week ago. EENT: Reports pain in left ear and right ear pulsating feeling in ears. Neuro: Level of Consciousness is awake, alert, obeys commands, Oriented to person, place, time, situation. Cardiovascular: Patient's skin is warm and dry. Respiratory: Airway is patent Respiratory effort is even, unlabored, Respiratory pattern is regular, symmetrical. Historical: - Allergies: 11:13 Codeine; ap3 11:13 Hydrocodone-Acetaminophen; ap3 11:13 tramadol; ap3 - Home Meds: 11:13 Metoprolol Tartrate Oral [Active]; Xarelto oral [Active]; ap3 - PMHx: 11:13 Atrial fibrillation; ap3 - PSHx: 11:13 PAULINE knee replaceement; ap3 - Immunization history:: Client reports having NOT received the Covid vaccine. Flu vaccine is up to date. - Infectious Disease History:: Denies. - Social history:: Smoking status: Patient denies any tobacco usage or history of. Screenin:14 Abuse screen: Denies threats or abuse. Nutritional screening: No deficits noted. ap3 Tuberculosis screening: No symptoms or risk factors identified. 13:49 [facility] ED Fall Risk Assessment (Adult) History of falling in the last 3 months, nj1 including since admission No falls in past 3 months (0 pts) Confusion or Disorientation No (0 pts) Intoxicated or Sedated No (0 pts) Impaired Gait No (0 pts) Mobility Assist Device Used No (0 pt) Altered Elimination No (0 pt) Score/Fall Risk Level 0 - 2 = Low Risk Oriented to surroundings, Maintained a safe environment, Hourly rounding (assess needs \T\ fall precautionary measures) done. Assessment: 13:00 General: Appears in no apparent distress. comfortable, Behavior is calm, cooperative, nj1 appropriate for age. Pain: Complains of pain in head Pain currently is 5 out of 10 on a pain scale. 13:00 Neuro: Level of Consciousness is awake, alert, obeys commands, Oriented to person, nj1 place, time, situation, Moves all extremities. Gait is steady, Speech is normal, Facial symmetry appears normal, Reports headache occipital area. Cardiovascular: Patient's skin is warm and dry. Cardiovascular: Rhythm is atrial fibrillation. Respiratory: Airway is patent Respiratory effort is even, unlabored. 14:00 Reassessment: Patient appears in no apparent distress at this time. Patient and/or nj1 family updated on plan of care and expected duration. Pain level reassessed. Patient is alert, oriented x 3, equal unlabored respirations, skin warm/dry/pink. Vital Signs: 11:11 BP 126 / 90; Pulse 89; Resp 18; Temp 98.1; Pulse Ox 99% ; Weight 59.87 kg; Height 5 ft. ap3 9 in. ; Pain 4/10; 13:00 BP 119 / 82; Pulse 96; Resp 21; Pulse Ox 99% ; Pain 5/10; nj1 14:00 BP 105 / 77; Pulse 84; Resp 20; Pulse Ox 99% ; nj1 14:48 Pain 2/10; nj1 11:11 Body Mass Index 19.49 (59.87 kg, 175.26 cm) ap3 11:11 Pain Scale: Adult ap3 13:00 Pain Scale: Adult nj1 14:48 Pain Scale: Adult nj1 [place] Coma Score: 14:04 Eye Response: spontaneous(4). Motor Response: obeys commands(6). Verbal Response: martinez oriented(5). Total: 15. ED Course: 11:05 Patient arrived in ED. rg4 11:12 Triage completed. ap3 11:14 Arm band placed on right wrist. ap3 11:16 Clemente Cueva MD is Attending Physician. martinez 11:25 EKG done, by ED staff, reviewed by Clemente Cueva MD. ap3 11:50 Initial lab(s) drawn, by ca, sent to lab. Urine collected: clean catch specimen, clear. jg11 Inserted saline lock: 20 gauge in left antecubital area, using aseptic technique. Blood collected. 11:50 Urinalysis w/ reflexes Sent. jg11 11:51 Basic Metabolic Panel Sent. jg11 11:51 CBC with Diff Sent. jg11 11:51 LFT's Sent. jg11 11:51 Magnesium Sent. jg11 11:51 NT PRO-BNP Sent. jg11 11:51 PT-INR Sent. jg11 11:51 Troponin HS Sent. jg11 12:25 XRAY Chest (1 view) In Process Unspecified. EDMS 12:38 CT Head Brain wo Cont In Process Unspecified. EDMS 12:38 CT Head Angio In Process Unspecified. EDMS 12:39 CT Neck Angio In Process Unspecified. EDMS 13:00 Belinda Beltrán, RN is Primary Nurse. nj1 13:00 Provided Education on: call light, fall precautions. nj1 13:01 Bed in low position. Call light in reach. Door closed. Warm blanket given. Client jg11 placed on continuous cardiac and pulse oximetry monitoring. NIBP monitoring applied. porcelain technician on. Pulse ox on. NIBP on. 14:10 Juan Clolins MD is Referral Physician. martinez 14:10 Brandyn De La Cruz MD is Referral Physician. martinez 14:49 No provider procedures requiring assistance completed. IV discontinued, intact, nj1 bleeding controlled, Pressure dressing applied. Administered Medications: 13:18 Not Given (Pt driving selff): fentanyl (pf)25 mcg IVP once nj1 13:19 Not Given (Patient Refused; Not nauseouss): ondansetron 4 mg IVP once; over 2 minutes nj1 13:40 Drug: Metoprolol PO 25 mg PO once Route: PO; nj1 14:49 Follow up: Response: No adverse reaction; Blood pressure is lowered nj1 13:40 Drug: Acetaminophen PO 650 mg PO once Route: PO; nj1 14:48 Follow up: Pain 2/10 Adult; Response: No adverse reaction; Pain is decreased nj1 13:50 Not Given (Pt driving selff): fentanyl (pf)25 mcg IVP once nj1 Medication: 14:49 VIS not applicable for this client. nj1 Outcome: 14:09 Discharge ordered by . martinez 14:49 Discharged to home ambulatory, nj 14:49 Condition: stable 14:49 Discharge instructions given to patient, Instructed on discharge instructions, follow up and referral plans. medication usage, Demonstrated understanding of instructions, follow-up care, medications, Prescriptions given X 1, 14:49 Patient left the ED. nj1 Signatures: Dispatcher [employer] EDMS Clemente Cueva MD MD cha Garcia, Rubi rg4 Yara Lovell RN RN ap3 Belinda Beltrán RN RN nj1 Jeevan Matos jg11 Corrections: (The following items were deleted from the chart) 11:27 11:11 Acuity: DORIS 3 ap3 ap3
--- NOTE | 2024-03-30 14:10 | EDPHYS ---
Physician Documentation [facility] Name: Katie York Age: 74 yrs Sex: Female : 1950 Arrival Date: 03/30/2024 Time: 11:03 Bed 16 Private MD: ED Physician Clemente Cueva HPI: 03/30 14:01 This 74 yrs old Female presents to ER via Ambulatory with complaints of Head martinez Pain. 14:01 The patient complains of pain to the forehead, left quaker, left frontal area, left martinez side of the back of head, left temporal area, left occipital area, left ear and left base of the skull. The patient describes the headache as aching. Onset: The symptoms/episode began/occurred this morning, today. Associated signs and symptoms: The patient has no apparent associated signs or symptoms. Severity of symptoms: At its worst the pain was mild, in the emergency department the pain is unchanged. Headache History: Denies prior headaches. The symptoms are alleviated by nothing. the symptoms are aggravated by nothing. The patient has not experienced similar symptoms in the past. Historical: - Allergies: 11:13 Codeine; ap3 11:13 Hydrocodone-Acetaminophen; ap3 11:13 tramadol; ap3 - Home Meds: 11:13 Metoprolol Tartrate Oral [Active]; Xarelto oral [Active]; ap3 - PMHx: 11:13 Atrial fibrillation; ap3 - PSHx: 11:13 PAULINE knee replaceement; ap3 - Immunization history:: Client reports having NOT received the Covid vaccine. Flu vaccine is up to date. - Infectious Disease History:: Denies. - Social history:: Smoking status: Patient denies any tobacco usage or history of. ROS: 14:02 Constitutional: Negative for fever, chills, and weight loss, Eyes: Negative for injury, martinez pain, redness, and discharge, ENT: Negative for injury, pain, and discharge, Neck: Negative for injury, pain, and swelling, Cardiovascular: Negative for chest pain, palpitations, and edema, Respiratory: Negative for shortness of breath, cough, wheezing, and pleuritic chest pain, Abdomen/GI: Negative for abdominal pain, nausea, vomiting, diarrhea, and constipation, Back: Negative for injury and pain, : Negative for injury, bleeding, discharge, and swelling, MS/Extremity: Negative for injury and deformity, Skin: Negative for injury, rash, and discoloration, Psych: Negative for depression, anxiety, suicide ideation, homicidal ideation, and hallucinations, Allergy/Immunology: Negative for hives, rash, and allergies, Endocrine: Negative for neck swelling, polydipsia, polyuria, polyphagia, and marked weight changes, Hematologic/Lymphatic: Negative for swollen nodes, abnormal bleeding, and unusual bruising, 14:02 Neuro: Positive for headache, Exam: 14:02 Constitutional: This is a well developed, well nourished patient who is awake, alert, martinez and in no acute distress. Head/Face: Normocephalic, atraumatic. Eyes: Pupils equal round and reactive to light, extra-ocular motions intact. Lids and lashes normal. Conjunctiva and sclera are non-icteric and not injected. Cornea within normal limits. Periorbital areas with no swelling, redness, or edema. ENT: Nares patent. No nasal discharge, no septal abnormalities noted. Tympanic membranes are normal and external auditory canals are clear. Oropharynx with no redness, swelling, or masses, exudates, or evidence of obstruction, uvula midline. Mucous membranes moist. Neck: Trachea midline, no thyromegaly or masses palpated, and no cervical lymphadenopathy. Supple, full range of motion without nuchal rigidity, or vertebral point tenderness. No Meningismus. Chest/axilla: Normal chest wall appearance and motion. Nontender with no deformity. No lesions are appreciated. Cardiovascular: Regular rate and rhythm with a normal S1 and S2. No gallops, murmurs, or rubs. Normal PMI, no JVD. No pulse deficits. Respiratory: Lungs have equal breath sounds bilaterally, clear to auscultation and percussion. No rales, rhonchi or wheezes noted. No increased work of breathing, no retractions or nasal flaring. Abdomen/GI: Soft, non-tender, with normal bowel sounds. No distension or tympany. No guarding or rebound. No evidence of tenderness throughout. Back: No spinal tenderness. No costovertebral tenderness. Full range of motion. Female : Normal external genitalia. Skin: Warm, dry with normal turgor. Normal color with no rashes, no lesions, and no evidence of cellulitis. MS/ Extremity: Pulses equal, no cyanosis. Neurovascular intact. Full, normal range of motion. Neuro: Awake and alert, GCS 15, oriented to person, place, time, and situation. Cranial nerves II-XII grossly intact. Motor strength 5/5 in all extremities. Sensory grossly intact. Cerebellar exam normal. Normal gait. Psych: Awake, alert, with orientation to person, place and time. Behavior, mood, and affect are within normal limits. 14:02 ECG was reviewed by the Attending Physician. Vital Signs: 11:11 BP 126 / 90; Pulse 89; Resp 18; Temp 98.1; Pulse Ox 99% ; Weight 59.87 kg; Height 5 ft. ap3 9 in. ; Pain 4/10; 13:00 BP 119 / 82; Pulse 96; Resp 21; Pulse Ox 99% ; Pain 5/10; nj1 14:00 BP 105 / 77; Pulse 84; Resp 20; Pulse Ox 99% ; nj1 14:48 Pain 2/10; nj1 11:11 Body Mass Index 19.49 (59.87 kg, 175.26 cm) ap3 11:11 Pain Scale: Adult ap3 13:00 Pain Scale: Adult nj1 14:48 Pain Scale: Adult nj1 [place] Coma Score: 14:04 Eye Response: spontaneous(4). Motor Response: obeys commands(6). Verbal Response: martinez oriented(5). Total: 15. MDM: 11:16 Patient medically screened. martinez 14:04 Differential diagnosis: cluster headache, epidural hematoma, hypertensive headache, martinez intracerebral hemorrhage, migraine, sinusitis, subarachnoid bleed, subdural hematoma, temporal arteritis, tension headache, traumatic injuries, trigeminal neuralgia, uremia, vasomotor headache. Data reviewed: vital signs, nurses notes, lab test result(s), EKG, radiologic studies, CT scan, plain films. Consideration of Admission/Observation Escalation of care including admission/observation considered. I considered the following discharge prescriptions or medication management in the emergency department Medications were administered in the Emergency Department. See MAR. Independent interpretation of the following test(s) in the Emergency Department CT Scan: My interpretation is CT HEAD. CTA HEAD AND NECK. 03/30 11:18 Order name: Basic Metabolic Panel; Complete Time: 13:54 martinez 03/30 11:18 Order name: CBC with Diff; Complete Time: 13:54 martinez 03/30 11:18 Order name: LFT's; Complete Time: 13:54 [facility] 06 11:18 Order name: Magnesium; Complete Time: 13:54 [facility] 03/30 11:18 Order name: NT PRO-BNP; Complete Time: 13:54 [facility] 03/30 11:18 Order name: PT-INR; Complete Time: 13:54 martinez 03/30 11:18 Order name: Troponin HS; Complete Time: 13:54 [facility] 03/30 11:18 Order name: Urinalysis w/ reflexes; Complete Time: 13:54 [facility] 03/30 12:00 Order name: Thyroid Stimulating Hormone; Complete Time: 13:54 EDMS 06 11:18 Order name: XRAY Chest (1 view); Complete Time: 13:54 [facility] 03/30 11:18 Order name: CT Head Brain wo Cont; Complete Time: 13:54 [facility] 03/30 11:18 Order name: CT Head Angio; Complete Time: 13:54 [facility] 03/30 11:18 Order name: CT Neck Angio; Complete Time: 13:54 [facility] 03/30 11:18 Order name: EKG; Complete Time: 11:19 [facility] 03/30 11:18 Order name: Cardiac monitoring; Complete Time: 13:01 [facility] 03/30 11:18 Order name: EKG - Nurse/Tech; Complete Time: 11:25 [facility] 03/30 11:18 Order name: IV Saline Lock; Complete Time: 11:50 [facility] 03/30 11:18 Order name: Labs collected and sent; Complete Time: 11:51 [facility] 03/30 11:18 Order name: O2 Per Protocol; Complete Time: 13:01 [facility] 03/30 11:18 Order name: O2 Sat Monitoring; Complete Time: 13:01 [facility] EC:02 Rate is 114 beats/min. Rhythm is irregularly irregular. QRS [place] is Normal. IN interval martinez is normal. QRS interval is normal. QT interval is normal. No Q waves. T waves are Normal. No ST changes noted. Clinical impression: Atrial Fibrillation and No evidence of ischemia. Interpreted by me. Reviewed by me. Administered Medications: 13:18 Not Given (Pt driving selff): fentanyl (pf)25 mcg IVP once nj1 13:19 Not Given (Patient Refused; Not nauseouss): ondansetron 4 mg IVP once; over 2 minutes nj1 13:40 Drug: Metoprolol PO 25 mg PO once Route: PO; nj1 14:49 Follow up: Response: No adverse reaction; Blood pressure is lowered nj1 13:40 Drug: Acetaminophen PO 650 mg PO once Route: PO; nj1 14:48 Follow up: Pain 2/10 Adult; Response: No adverse reaction; Pain is decreased nj1 13:50 Not Given (Pt driving selff): fentanyl (pf)25 mcg IVP once nj1 Disposition Summary: 03/30/24 14:09 Discharge Ordered Notes: Location: Home martinez Problem: new martinez Symptoms: have improved martinez Condition: Stable martinez Diagnosis - Headache martinez - Persistent atrial fibrillation martinez - exterminator helper termite (current) use of anticoagulants martinez - Occlusion and stenosis of left carotid artery - LESS THAN 50% CAROTID martinez - Nontoxic single thyroid nodule - 3 CM RIGHT martinez Followup: martinez - With: Private Physician - When: 2 - 3 days - Reason: Recheck today's complaints, Continuance of care, Re-evaluation by your physician Followup: martinez - With: Juan Collins MD - When: 2 - 3 days - Reason: Recheck today's complaints, Re-evaluation by your physician Followup: martinez - With: Brandyn De La Cruz MD - When: 2 - 3 days - Reason: Recheck today's complaints, Re-evaluation by your physician Discharge Instructions: - Discharge Summary Sheet martinez - Atrial Fibrillation martinez - General Headache Without Cause martinez - General Headache Without Cause, [id number] martinez - Carotid Artery Disease martinez - Carotid Artery Disease, [id number] martinez Forms: - Medication Reconciliation Form martinez - Antibiotic Education martinez - Prescription Opioid Use martinez - Patient Portal Instructions [facility] - Leadership Thank You Letter [facility] Prescriptions: - Tylenol 325 mg Oral tablet - take 2 tablets ORAL route every 6 hours as needed; 50 tablet; Refills: 0, martinez Product Selection Permitted Signatures: Dispatcher [employer] Clemente Vaughan MD MD cha Prokisch, Amanda RN RN ap3 Belinda Beltrán RN RN nj1 Corrections: (The following items were deleted from the chart) 11:19 11:18 BASIC METABOLIC PANEL+C.LAB.BRZ ordered. EDMS EDMS 11:19 11:18 CBC+H.LAB.BRZ ordered. EDMS EDMS 11:19 11:18 HEPATIC FUNCTION+C.LAB.BRZ ordered. EDMS EDMS 11:19 11:18 MAGNESIUM+C.LAB.BRZ ordered. EDMS EDMS 11: 11:19 PROBNP+C.LAB.BRZ ordered. EDMS EDMS 11: 11:19 PROTIME (+INR)+COAG.LAB.BRZ ordered. EDMS EDMS 11: 11:19 Troponin High Sensitivity+C.LAB.BRZ ordered. EDMS EDMS 11: 11:19 Urinalysis+U.LAB.BRZ ordered. EDMS EDMS 11: 11:19 Neck Angio+CT.RAD.BRZ ordered. EDMS EDMS 11:58 11:58 LAB ADD ON+C.LAB.BRZ ordered. EDMS EDMS
[2024-03-30 15:17] VITALS: TEMP 98.1; O2SAT 99
[2024-03-30 15:33] VITALS: BP 105/77
--- NOTE | 2024-04-02 11:53 | EKG ---
Test Date: 2024-03-30 Test Time: 11:22:39 Sleeve Tailor: ALP MEASUREMENT RESULTS: Intervals: Rate: 114 [place]: QRSD: 64 QT: 342 QTc: 471 [place]: P: [place]: QRS: 82 T: -8 INTERPRETIVE STATEMENTS: Atrial fibrillation with rapid ventricular response Nonspecific T wave abnormality Abnormal ECG No previous ECG available for comparison Electronically Signed On 04-02-24 11:49:47 CDT by Juan Crocker
== END 2024-03-30 14:49 | disposition home or self-care (01) ==
LOC: ER 11:03
DX: R51.9 Headache, unspecified (principal); I65.22 Occlusion and stenosis of left carotid artery; I48.19 Other persistent atrial fibrillation; Z79.01 Long term (current) use of anticoagulants; E04.1 Nontoxic single thyroid nodule
CPT/HCPCS: 93005; 85025; 81001; 80048; 36415; 83735; 85610; 80076; 84443; 84484; 83880; 70450; 70496; 70498; 71045; 99285; Q9967 ×2; J2405; J3010